=== PATIENT | female | born 1990 | race Caucasian/White ===

== ENCOUNTER 2022-08-27 06:25 | Emergency (ER) | payer BC, SELFPAY ==
[2022-08-27 06:25] VITALS: BP 118/56; PULSE 77; RESP 18; TEMP 36.8; O2SAT 97; BMI 37.0
--- NOTE | 2022-08-27 06:52 | HMH.EDBACK ---
Discharge Plan Disposition Patient Disposition: Home, Self-Care Prescriptions Prescriptions: New prednisone [prednisone] 20 mg tablet 20 mg PO BID Qty: 10 0RF No Action pantoprazole [Protonix] 40 mg Tablet,Delayed Release (Dr/Ec) 40 mg PO DAILY Referrals Follow up/Referrals: Provider,Referral, [Primary Care Provider] - See instructions Clinical Impressions Clinical Impression: Lumbar radiculopathy Instructions Patient Instructions: DI for Back Pain With Sciatica Discharge ED Provider: Shravan (ED)Geoffrey Back Pain HPI General Chief Complaint: Back Pain/Injury Stated Complaint: Back pain Time Seen by Provider: 08/27/22 06:45 Mode of Arrival: Ambulatory Source of Information: Patient, Significant Other and Medical Record Limitations: No Limitations Description of Symptoms (Recalled from ER Triage Doc. by RN): pt states that she has chronic back pain and that she can not find any reliefe the pt states that she has multiple back issues in the lumbar region, herniated discs buldging discs spinal stenosis, and degeneritive disc disease. the pt states that she used motrin last night but the pain is still 11/26 History of Present Illness HPI Narrative: acute nontraumatic lumbar pain w/o fever/rash or trauma with hx of l/s radicular pain with hx of abn mri - no cauda equina sx Complaint: back pain Onset (ago): day(s) Duration: intermittent Similar Symptoms Previously: Yes Location: lumbar spine Severity: moderate Context: turning/twisting and bending Associated symptoms: denies other symptoms Related Data Home Medications Medication Instructions Recorded Confirmed pantoprazole 40 mg tablet,delayed 40 mg PO DAILY . 08/27/22 08/27/22 release (Protonix) Previous Rx's Medication Instructions Recorded prednisone 20 mg tablet 20 mg PO BID #10 tabs 08/27/22 Allergies Allergy/AdvReac Type Severity Reaction Status Date / Time Penicillins Allergy Verified 08/27/22 06:43 propofol Allergy Verified 08/27/22 06:43 [facility] Disclaimer: The information contained in this section may have been updated after the patient was seen, as this information can be updated by other users. Social History Smoking Status: Current some day smoker alcohol intake: never current occupational status: unemployed Travel in the last 8 weeks: None ROS Obtained: Yes All systems reviewed & no additional complaints except as documented Physical Exam General General appearance: alert Head Head exam: atraumatic Eye Eye exam: Present PERRL and EOMI ENT ENT exam: Present mucous membranes moist Neck Neck exam: Present trachea midline Respiratory Respiratory exam: Absent respiratory distress Cardiovascular Cardiovascular exam: Present regular rate Abdominal Exam Abdominal exam: Present soft Extremities Exam Extremities exam: Present full ROM Back Exam Back exam: Present tenderness and paraspinal tenderness; Absent full ROM, CVA tenderness (R), CVA tenderness (L), vertebral tenderness, rashes or straight leg raise (L) Neurological Exam Neurological exam: Present alert, oriented X3 and CN II-XII intact; Absent motor sensory deficit Psychiatric Psychiatric exam: Present normal affect Skin Skin exam: Absent rash Medical Decision Making Medical Records Medical records reviewed: Yes I reviewed the patient's medical records. Javier Inquiry Pt receiving controlled substance: No Vital Signs: 08/27/22 06:25 Temperature 98.3 F Temperature Source Oral Pulse Rate [Left] 77 Respiratory Rate 18 Blood Pressure [Right Arm] 118/56 L Blood Pressure Mean [Right Arm] 76 02 Sat by Pulse Oximetry 97 Oxygen Delivery Method Room Air Lab Data Lab results reviewed: Yes I reviewed the patient's lab results. Orders (Tests/Meds): ED MEDICATIONS Generic Name Dose Route Start Last Admin Trade Name Freq PRN Reason Stop Dose Admin Acetaminophen/Codeine Phosphate 1 packet 08/27/22 06:47
[2022-08-27 06:58] VITALS: BP 121/67; PULSE 73; RESP 18; TEMP 36.8; O2SAT 99
== END 2022-08-27 07:03 | disposition home or self-care (01) ==
PROVIDERS: Emergency Provider Emergency Medicine
DX: M54.16 Radiculopathy, lumbar region (principal); F17.200 Nicotine dependence, unspecified, uncomplicated
CPT/HCPCS: 96372; 96374; 99284

== ENCOUNTER → 2022-08-29 07:20 | Outpatient (CLI) | payer BC, SELFPAY ==
--- NOTE | 2022-08-29 07:25 | XR_ITS ---
FINAL REPORT CLINICAL HISTORY: low back pain COMPARISON: None FINDINGS: 3 views of the lumbosacral spine were obtained. There is no fracture present. There is 4 mm of anterolisthesis of L5 on S1. There is mild degenerative change with osteophytes. Stent is present in the left iliac region. IMPRESSION: No acute process. Reviewed, Interpreted and Dictated by Vicente Doran III, MD Transcribed by Dasha Cm Authenticated and [facility]
== END ==
PROVIDERS: PCP Family Medicine; Visit Provider Family Medicine
DX: M54.16 Radiculopathy, lumbar region (principal)
CPT/HCPCS: 72100

== ENCOUNTER 2022-10-25 14:00 | Outpatient (RCR) | payer BC, SELFPAY ==
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
--- NOTE | 2022-10-25 17:46 | HMH.RHREAS ---
Rehab Reassessment Rehab OP Re-assessment Start: 09/27/22 13:45 Freq: Status: Active Protocol: Document 10/25/22 15:17 RENZO (Rec: 10/25/22 17:45 RENZO [id number]) E-signed By Keo Gonzalez, PT Oswestry Index Section 1 Pain Intensity The pain comes and goes and is severe Section 2 Personal Care (Washing,Dresing) increase the pain and I find it necessary to change my way of doing it Section 3 Lifting I can only lift very light weights at most Section 4 Walking I cannot walk more than 1/4 mile without increasing pain Section 5 Sitting Pain prevents me from sitting for more than 1/2 hour Section 6 Standing I cannot stand more than 1/2 hour without increasing pain Section 7 Sleeping Because of pain, my normal nights sleep is less than 2 hours sleep Section 8 Social Life Pain has restricted my social life and I do not go out often Section 9 Traveling I get extra pain while traveling which compels me to seek alternate fo Score and Risk Level Oswestry Sc 32 Oswestry Risk Level Severe Disability Rehab Re-assessment Subjective Subjective Patient reports no significant improvement since start of care. I couldn't do the exercises bacause of the position and they made me feel more sore. So I haven't been doing them. Objective Objective Notes AROM: WFL except flx 62 MMT: WFL Pain: 5/10 today; 8/10 at worst over past week Neuro: no reports of radicular symptoms. Myotomes normal. Assessment Progress Assessment No Progress Assessment Notes Patient was seen for her second treatment visit to date . Lack of progress due to extenuating circumstances and non-compliance with HEP. Patient has been vocal about wanting to have an MRI, and that a MRI will help her feel better. PT informed patient that lack of progress is due to lack of participation in PT and HEP. She would benefit from continuing with skilled PT services in order to address functional limitations with all standing, ambulatory , bending/lifting activities. Patient goals met None Goals Not Met All Revised Goals NA Plan Plan Continue with current POC. Frequency of Therapy 2x/week Duration of therapy 4 weeks Time and Billing Re-Eval Time 14 Re-Eval Billing Units 1 PHYSICIAN CERTIFICATION: I certify the specified therapy services for Sania De La Vegain are required, authorized, and reviewed every 30 days.
== END 2022-10-25 15:20 | disposition home or self-care (01) ==
LOC: PT 14:00
PROVIDERS: Visit Provider Family Medicine
DX: M54.50 Low back pain, unspecified (principal); M54.16 Radiculopathy, lumbar region
CPT/HCPCS: 97010; 97014; 97110; 97140; 97163; 97164; G0283

== ENCOUNTER → 2022-11-11 00:10 | Outpatient (CLI) | payer BC, SELFPAY ==
[2022-11-11 16:28] LABS: Basophils % 0.2 % (0.1-2.0); Eosinophils # 0.2 K/mm3 (0.0-0.4); Eosinophils % 2.7 % (0.1-12.0); Hematocrit 45.9 % (37.0-47.0); Hemoglobin 14.9 g/dL (12.2-16.2); Lymphocytes # 2.1 K/mm3 (0.7-4.5); Mean Corpuscular HGB Conc 32.5 g/dL (31.8-35.4); Mean Corpuscular Hemoglobin 26.8 pg (27.0-31.2); Mean Corpuscular Volume 82.5 fl (81-99); Monocytes # 0.3 K/mm3 (0.1-1.0); Monocytes % 3.4 % (1.7-9.3); Neutrophils # 5.1 K/mm3 (1.8-7.8); Neutrophils % 66.6 % (37.0-80.0); Platelet Count 272 K/mm3 (142-424); Red Blood Count 5.56 M/mm3 (4.20-5.40); Red Cell Distribution Width 15.4 % (11.5-17.5); White Blood Count 7.6 K/mm3 (4.8-10.8)
[2022-11-11 16:33] LABS: Alanine Aminotransferase 22 U/L (12-78); Albumin Level 4.5 g/dl (3.5-5.0); Albumin/Globulin Ratio 1.6 (1.1-1.8); Alkaline Phosphatase 78 U/L (38-126); Anion Gap 15.4 mEq/L (5-15); Aspartate Amino Transferase 30 U/L (14-36); Bilirubin,Total 0.6 mg/dl (0.2-1.3); Blood Urea Nitrogen 13 mg/dl (7-17); Calcium 9.3 mg/dl (8.4-10.2); Carbon Dioxide 25 mmol/L (22.0-30.0); Chloride 105 mmol/L (98-107); Estimated Glomerular Filt Rate 72 ml/min (>60); GFR (African American) 87 ML/MIN (>60); Globulin 2.9 g/dL (1.3-3.2); Glucose 82 mg/dl (74-100); Potassium 4.4 mmoL/L (3.5-5.1); Sodium 141 mmol/L (136-145); Total Protein,Serum 7.4 g/dl (6.3-8.2)
== END ==
PROVIDERS: PCP Family Medicine; Visit Provider Family Medicine
DX: R60.9 Edema, unspecified (principal)
CPT/HCPCS: 80053; 83036; 85025

== ENCOUNTER 2022-12-12 13:19 | Emergency (ER) | payer BC, SELFPAY ==
[2022-12-12 13:20] VITALS: BP 115/66; PULSE 68; RESP 17; TEMP 36.6; O2SAT 98; BMI 39.2
--- NOTE | 2022-12-12 13:34 | CT_ITS ---
PROCEDURE INFORMATION: Exam: CT Lumbar Spine Without Contrast Exam date and time: 12/12/2022 2:44 PM Age: 32 years old Clinical indication: Low back pain; Additional info: Midline tenderness TECHNIQUE: Imaging protocol: Computed tomography of the lumbar spine without contrast. Radiation optimization: All CT scans at this facility use at least one of these dose optimization techniques: automated exposure control; mA and/or kV adjustment per patient size (includes targeted exams where dose is matched to clinical indication); or iterative reconstruction. REPORTING DATA: Count of CT and Cardiac NM exams in prior 12 months: This patient has received 0 known CTs and 0 known cardiac nuclear medicine studies in the 12 months prior to the current study. COMPARISON: CR XR LUMBAR SPINE 2-3V 08/29/2022 7:26 AM FINDINGS: Bones/joints: Anterolisthesis of L5 over S1 attributed to a chronic bilateral pars defects. There is preservation of vertebral body heights. Facet joints are aligned. No acute fracture. L1-L2: No significant disc bulge or herniation. No severe spinal canal stenosis. No significant neural foraminal narrowing. L2-L3: No significant disc bulge or herniation. No severe spinal canal stenosis. No significant neural foraminal narrowing. L3-L4: No significant disc bulge or herniation. No severe spinal canal stenosis. No significant neural foraminal narrowing. L4-L5: No significant disc bulge or herniation. No severe spinal canal stenosis. There is mild bilateral neural foraminal narrowing. L5-S1: No significant disc bulge or herniation. No severe spinal canal stenosis. There is mild to moderate bilateral neural foraminal narrowing. Vasculature: There is a stent graft in the left common and external iliac veins Soft tissues: Unremarkable. Other findings: . IMPRESSION: 1. No acute fracture. No traumatic subluxation. 2. Anterolisthesis of L5 over S1 attributed to a chronic bilateral pars defects. There is mild to moderate bilateral neural foraminal narrowing at L5-S1 level.
--- NOTE | 2022-12-12 13:36 | HMH.EDGENADL ---
Discharge Plan Disposition Patient Disposition: Home, Self-Care Prescriptions Prescriptions: No Action pantoprazole [Protonix] 40 mg tablet,delayed release (DR/EC) 40 mg PO DAILY 30 Days Qty: 30 2RF Referrals Follow up/Referrals: Ti Lofton MD [Primary Care Provider] - See instructions Activity Restrictions/Add. Instructions Additional Instructions/Restrictions: At this time it was felt you are safe to be discharged home. If new or worsening symptoms please do not hesitate to return the emergency department. Please continue to follow-up with physical therapy as discussed. Clinical Impressions Clinical Impression: Back pain Discharge ED Provider: Ovidio Altamirano General Adult HPI <Ovidio Altamirano MD - Last Filed: 12/12/22 14:44> General Chief complaint: PAIN Stated complaint: lower back pain, no accident9 Time Seen by Provider: 12/12/22 13:26 History of Present Illness HPI narrative: Patient is a 32-year-old female with past medical history of chronic back pain who presents to the emergency department for evaluation of acute worsening of her back pain. Patient states she has had back pain for approximately 15 years and has a slipped disc in her lumbar spine for which she was conducting PT with some success however has been lost to follow-up due to transportation issues. Patient denies saddle anesthesia, urinary continence, bowel incontinence however has had an acute worsening of midline pain in her lower spine causing her to present here for continued evaluation. Related Data Previous Rx's Medication Instructions Recorded pantoprazole 40 mg tablet,delayed 40 mg PO DAILY . 30 days #30 tabs 09/19/22 release (Protonix) Allergies Allergy/AdvReac Type Severity Reaction Status Date / Time Penicillins Allergy Verified 12/12/22 13:39 propofol Allergy Verified 12/12/22 13:39 propranolol [From Inderal [place]] Allergy Verified 12/12/22 14:19 PFSH <Ovidio Altamirano MD - Last Filed: 12/12/22 14:44> [facility] Disclaimer: The information contained in this section may have been updated after the patient was seen, as this information can be updated by other users. Medical History Degenerative disc disease DVT (deep venous thrombosis) Lumbar radiculopathy Scoliosis Spinal stenosis Surgical History H/O adenoidectomy H/O eye surgery History of History of partial hysterectomy History of tonsillectomy Lipoma of left lower extremity S/P dilation and curettage Status post insertion of iliac artery stent [place] teeth extracted Family History Mother Hypertension Stroke Diabetes Father Hypertension Stroke Coronary artery disease Grandmother Cancer Social History Smoking Status: Current every day smoker alcohol intake: never substance use type: denies use current occupational status: unemployed Travel in the last 8 weeks: Inside the [place] <Ovidio Altamirano MD - Last Filed: 12/12/22 14:44> ROS Obtained: Yes Systems reviewed as appropriate & no additional complaints except as documented Physical Exam <Ovidio Altamirano MD - Last Filed: 12/12/22 14:44> General General appearance: alert and in no apparent distress Head Head exam: atraumatic and normocephalic Eye Eye exam: Present PERRL and EOMI ENT ENT exam: Present mucous membranes moist Neck Neck exam: Present normal inspection Chest Chest inspection: Present normal inspection and symmetric chest wall rise Respiratory Respiratory exam: Present normal lung sounds bilaterally; Absent respiratory distress Cardiovascular Cardiovascular exam: Present regular rate and normal rhythm Abdominal Exam Abdominal exam: Present soft; Absent tenderness Extremities Exam Extremities exam: Present stephanie
[2022-12-12 13:39] LABS: Microscopic, Urine URINE MICROSCOPIC (MICROSCOPIC)
[2022-12-12 13:42] LABS: Appearance,Urine CLEAR (Clear); Bilirubin,Urine Negative (Negative); Blood, Urine Negative (Negative); Color,Urine YELLOW (Yellow); Glucose,Urine (UA) Negative (Negative); Ketones,Urine Negative (Negative); Leukocyte Esterase,Urine Negative (Negative); Nitrate,Urine Negative (Negative); Protein,Urine Negative (Negative); Urobilinogen,Urine 0.2 EU/dl (0.2)
[2022-12-12 13:47] LABS: Urine Pregnancy, HCG Qual. Negative (Negative)
[2022-12-12 13:55] LABS: Bacteria,Urine Trace /lpf
[2022-12-12 15:10] VITALS: BP 112/60; PULSE 59; O2SAT 99
--- NOTE | 2022-12-12 15:49 | PC.NURSE ---
Addendum entered by Adelfo Tomlinson RN 12/12/22 15:51: call light in reach. pt provided with bottle of water. Original Note: rounded on pt at this time, updated pt on POC, no complaints at this time.
[2022-12-12 16:03] VITALS: BP 110/67; PULSE 60; RESP 17; TEMP 36.7; O2SAT 98
== END 2022-12-12 16:04 | disposition home or self-care (01) ==
PROVIDERS: Emergency Provider Emergency Medicine; PCP Family Medicine
DX: M43.16 Spondylolisthesis, lumbar region; M54.50 Low back pain, unspecified; F17.210 Nicotine dependence, cigarettes, uncomplicated
CPT/HCPCS: 72131; 81001; 81025; 99284

== ENCOUNTER 2023-01-05 15:19 | Emergency (ER) | payer BC, SELFPAY ==
[2023-01-05 15:23] VITALS: BP 118/59; PULSE 87; RESP 18; TEMP 36.4; O2SAT 99; BMI 39.5
--- NOTE | 2023-01-05 15:55 | XR_ITS ---
PROCEDURE INFORMATION: Exam: XR Left Knee Exam date and time: 01/05/2023 4:05 PM Age: 32 years old Clinical indication: Pain; Knee; Right; Additional info: Pain no injury TECHNIQUE: Imaging protocol: Radiologic exam of the left knee. Views: 3 views. COMPARISON: No relevant prior studies available. FINDINGS: Bones/joints: Normal. Soft tissues: Normal. IMPRESSION: No acute findings.
--- NOTE | 2023-01-05 15:58 | HMH.EDGENADL ---
Discharge Plan Disposition Patient Disposition: Home, Self-Care Chief Complaint: Extremity Injury, Lower Prescriptions Prescriptions: No Action pantoprazole [Protonix] 40 mg tablet,delayed release (DR/EC) 40 mg PO DAILY 30 Days Qty: 30 2RF Referrals Follow up/Referrals: Dav Norris DO [Staff Physician] - See instructions Ti Lofton MD [Primary Care Provider] - See instructions Activity Restrictions/Add. Instructions Additional Instructions/Restrictions: At this time it was felt you are safe to be discharged home. If new or worsening symptoms please do not hesitate to return the emergency department. If symptoms persist please call Dr. Norris for follow-up. Clinical Impressions Clinical Impression: Popping of left knee joint Discharge ED Provider: Ovidio Altamirano General Adult HPI General Chief complaint: Extremity Injury, Lower Stated complaint: LT knee pain Time Seen by Provider: 01/05/23 15:29 Mode of Arrival: Ambulatory Source of Information: Patient Limitations: No Limitations Description of Symptoms (Recalled from ER Triage Doc. by RN): left knee popped in bed. no pain History of Present Illness HPI narrative: Patient is a 32-year-old female who presents emergency department for evaluation of left knee popping. Patient states that her left knee popped a couple days ago while stretching in bed, no significant pain, no difficulty bearing weight however she does feel grinding on her leg. She does have a history of juvenile idiopathic arthritis. Denies current pain. No other acute complaints at this time. Related Data Previous Rx's Medication Instructions Recorded pantoprazole 40 mg tablet,delayed 40 mg PO DAILY . 30 days #30 tabs 12/16/22 release (Protonix) Allergies Allergy/AdvReac Type Severity Reaction Status Date / Time Penicillins Allergy Verified 12/12/22 13:39 propofol Allergy Verified 12/12/22 13:39 propranolol [From Inderal [place]] Allergy Verified 12/12/22 14:19 [facility] Disclaimer: The information contained in this section may have been updated after the patient was seen, as this information can be updated by other users. Medical History Degenerative disc disease DVT (deep venous thrombosis) Lumbar radiculopathy Scoliosis Spinal stenosis Surgical History H/O adenoidectomy H/O eye surgery History of History of partial hysterectomy History of tonsillectomy Lipoma of left lower extremity S/P dilation and curettage Status post insertion of iliac artery stent [place] teeth extracted Family History Mother Hypertension Stroke Diabetes Father Hypertension Stroke Coronary artery disease Grandmother Cancer Social History Smoking Status: Never smoker alcohol intake: never substance use type: denies use current occupational status: unemployed Travel in the last 8 weeks: Inside the [place] [facility] ROS Obtained: Yes Systems reviewed as appropriate & no additional complaints except as documented Physical Exam General General appearance: alert and in no apparent distress Head Head exam: atraumatic and normocephalic Eye Eye exam: Present PERRL and EOMI ENT ENT exam: Present mucous membranes moist Neck Neck exam: Present normal inspection Chest Chest inspection: Present normal inspection and symmetric chest wall rise Respiratory Respiratory exam: Absent respiratory distress Cardiovascular Cardiovascular exam: Present regular rate and normal rhythm Extremities Exam Extremities exam: Present normal inspection and other (No significant tenderness over the knee, extensor mechanism intact, 5 out of 5 strength of the left lower extremity.) Neurological Exam Neurological exam: Present alert Psychiatric Psychiatric ex
[2023-01-05 16:58] VITALS: BP 108/58; PULSE 77; RESP 18; TEMP 36.6
--- NOTE | 2023-02-07 23:21 | PC.NURSE ---
notified patient of + covid result.
== END 2023-01-05 17:03 | disposition home or self-care (01) ==
PROVIDERS: Emergency Provider Emergency Medicine; PCP Family Medicine
DX: M25.562 Pain in left knee (principal); R29.898 Other symptoms and signs involving the musculoskeletal system; Z87.39 Personal history of other diseases of the musculoskeletal system and connective tissue
CPT/HCPCS: 73562; 99283

== ENCOUNTER 2023-01-16 14:10 | Outpatient (RCR) | payer BC, SELFPAY | END 2023-01-16 15:30 | disposition home or self-care (01) | LOC: PT 14:10 | PROVIDERS: Visit Provider Orthopaedic Surgery | DX: M25.562 Pain in left knee (principal) | CPT/HCPCS: 97760 ==

== ENCOUNTER 2023-02-07 21:31 | Emergency (ER) | payer BC, SELFPAY ==
[2023-02-07 21:32] VITALS: BP 106/45; PULSE 113; RESP 15; TEMP 37.2; O2SAT 100; BMI 39.2
[2023-02-07 22:16] LABS: Strep Scrn Group A (Rapid) Negative (Negative)
--- NOTE | 2023-02-07 22:29 | HMH.EDGENADL ---
Discharge Plan Disposition Patient Disposition: Home, Self-Care Prescriptions Prescriptions: New ezdpxcmoymjclcm-mpfpqdfit-BG [Bromfed DM] 2-30-10 mg/5 mL syrup 5 ml PO Q6H PRN (Reason: cold symptoms) Qty: 118 0RF No Action sulfamethoxazole-trimethoprim 800-160 mg tablet 1 tab PO BID Qty: 20 0RF cephalexin 500 mg capsule 500 mg PO QID Qty: 40 0RF cetirizine [Zyrtec] 10 mg tablet 10 mg PO DAILY Qty: 30 0RF pseudoephedrine HCl 120 mg tablet extended release 120 mg PO Q12H Qty: 20 1RF pantoprazole [Protonix] 40 mg tablet,delayed release (DR/EC) 40 mg PO DAILY 30 Days Qty: 30 2RF Referrals Follow up/Referrals: Ti Lofton MD [Primary Care Provider] - See instructions Activity Restrictions/Add. Instructions Additional Instructions/Restrictions: At this time it was felt you are safe to be discharged home. If new or worsening symptoms please do not hesitate to return the emergency department. If symptoms persist please follow-up with your family doctor as you are able. Please take your medication as prescribed. Clinical Impressions Clinical Impression: Viral respiratory infection Discharge ED Provider: Ovidio Altamirano General Adult HPI General Chief complaint: Upper Respiratory Infection Stated complaint: sore throat, raspy voice Time Seen by Provider: 02/07/23 22:01 Mode of Arrival: Family Vehicle Source of Information: Patient Limitations: No Limitations Description of Symptoms (Recalled from ER Triage Doc. by RN): 32 yo female with sore throat and raspy voice x 2 days. Patient states i have been trying to get over the sinus infection History of Present Illness HPI narrative: PastPatient is a 32-year-old female with history presents emergency department for evaluation of sore throat and raspy voice for 2 days. Patient originally had sinus drainage for the last week or so which has progressed into sore throat and cough. No other acute complaints at this time. Related Data Previous Rx's Medication Instructions Recorded pantoprazole 40 mg tablet,delayed 40 mg PO DAILY . 30 days #30 tabs 12/16/22 release (Protonix) sulfamethoxazole 800 1 tab PO BID #20 tabs 01/20/23 mg-trimethoprim 160 mg tablet cephalexin 500 mg capsule 500 mg PO QID #40 caps 01/29/23 cetirizine 10 mg tablet (Zyrtec) 10 mg PO DAILY allergy symptoms 01/29/23 #30 tabs pseudoephedrine HCl 120 mg 120 mg PO Q12H #20 tabs 01/29/23 tablet,extended release puumdbyuyfhqegc-taoativiqqoimca-CS 5 ml PO Q6H PRN cold symptoms #118 02/07/23 2 mg-30 mg-10 mg/5 mL oral syrup mL (Bromfed DM) Allergies Allergy/AdvReac Type Severity Reaction Status Date / Time Penicillins Allergy Verified 01/29/23 14:42 propranolol [From Inderal LA] Allergy Verified 01/29/23 14:42 PFSH PFSH Disclaimer: The information contained in this section may have been updated after the patient was seen, as this information can be updated by other users. Medical History Degenerative disc disease DVT (deep venous thrombosis) Lumbar radiculopathy Scoliosis Spinal stenosis Surgical History H/O adenoidectomy H/O eye surgery History of History of partial hysterectomy History of tonsillectomy Lipoma of left lower extremity S/P dilation and curettage Status post insertion of iliac artery stent [place] teeth extracted Family History Mother Hypertension Stroke Diabetes Father Hypertension Stroke Coronary artery disease Grandmother Cancer Social History Smoking Status: Unknown if ever smoked alcohol intake: never substance use type: denies use current occupational status: unemployed Travel in the last 8 weeks: Inside the [place] ROS Obtained: Yes Systems reviewed as approp
[2023-02-07 22:31] LABS: Influenza A, PCR Not Detected (NotDetected); Influenza B, PCR Not Detected (NotDetected)
[2023-02-07 22:47] VITALS: BP 109/57; PULSE 100; RESP 16; TEMP 37.2; O2SAT 100
[2023-02-07 23:02] LABS: Coronavirus 19, PCR Detected (NotDetected)
== END 2023-02-07 22:47 | disposition home or self-care (01) ==
PROVIDERS: Emergency Provider Emergency Medicine; PCP Family Medicine
DX: U07.1 COVID-19 (principal); R07.0 Pain in throat; R05.9 Cough, unspecified; R09.82 Postnasal drip; R00.0 Tachycardia, unspecified
CPT/HCPCS: 87430; 87636; 99283

== ENCOUNTER 2023-03-03 16:47 | Outpatient (CLI) | payer BC, SELFPAY ==
[2023-03-03 16:31] LABS: Basophils % 0.5 % (0.1-2.0); Eosinophils # 0.1 K/mm3 (0.0-0.4); Eosinophils % 1.3 % (0.1-12.0); Hematocrit 42.8 % (37.0-47.0); Hemoglobin 14.7 g/dL (12.2-16.2); Lymphocytes # 1.9 K/mm3 (0.7-4.5); Lymphocytes % 30.1 % (10-50); Mean Corpuscular HGB Conc 34.3 g/dL (31.8-35.4); Mean Corpuscular Hemoglobin 27.9 pg (27.0-31.2); Mean Corpuscular Volume 81.2 fl (81-99); Mean Platelet Volume 8.9 fl (7.4-10.4); Monocytes # 0.3 K/mm3 (0.1-1.0); Neutrophils # 4.1 K/mm3 (1.8-7.8); Neutrophils % 64.1 % (37.0-80.0); Platelet Count 233 K/mm3 (142-424); Red Blood Count 5.27 M/mm3 (4.20-5.40); Red Cell Distribution Width 14.5 % (11.5-17.5); White Blood Count 6.4 K/mm3 (4.8-10.8)
[2023-03-03 17:00] LABS: Iron 56 ug/dL (37-170)
[2023-03-03 17:13] LABS: Total Iron Binding Capacity 298 ug/dL (265-497)
[2023-03-03 18:59] LABS: 25-OH Vitamin D, Total 27.4 ng/mL (30-100)
[2023-03-05 08:15] LABS: FSH 4.5 mIU/mL (.)
== END 2023-03-03 23:59 ==
LOC: LAB.DROPOF 16:48
PROVIDERS: PCP Family Medicine; Visit Provider Family Medicine
DX: G47.00 Insomnia, unspecified (principal); E55.9 Vitamin D deficiency, unspecified; Z68.38 Body mass index [BMI] 38.0-38.9, adult
CPT/HCPCS: 82306; 83001; 83540; 83550; 85025

== ENCOUNTER 2023-04-24 08:37 | Emergency (ER) | payer BC, SELFPAY ==
[2023-04-24 08:38] VITALS: BP 126/75; PULSE 67; RESP 16; TEMP 36.9; O2SAT 99; BMI 37.8
[2023-04-24 08:59] VITALS: BP 131/75; PULSE 75; O2SAT 99
[2023-04-24 09:00] VITALS: BP 126/75; PULSE 74; O2SAT 99
--- NOTE | 2023-04-24 09:17 | XR_ITS ---
FINAL REPORT CLINICAL HISTORY: left flank pain COMPARISON: None FINDINGS: Two views of the chest were obtained. The heart size and pulmonary vascularity are within normal limits. The mediastinum is normal. No acute pulmonary abnormality is identified. There is no pneumothorax. The bony thorax is intact. IMPRESSION: No active cardiopulmonary disease. Reviewed, Interpreted and Dictated by Vicente Doran III, MD Transcribed by Dasha Cm Authenticated and [facility]
--- NOTE | 2023-04-24 09:24 | ED_ITS ---
Discharge Plan Disposition Patient Disposition: Home, Self-Care Prescriptions Prescriptions: New cyclobenzaprine 10 mg tablet 10 mg PO TID PRN (Reason: muscle spasm) 5 Days Qty: 15 0RF ibuprofen 800 mg tablet 800 mg PO TID PRN (Reason: pain) 7 Days Qty: 20 0RF No Action escitalopram oxalate [Lexapro] 10 mg tablet 10 mg PO DAILY Qty: 30 1RF cyclobenzaprine 10 mg tablet 10 mg PO Patient Comments: TAKE 1 TABLET EVERY 8 HOURS diclofenac sodium 75 mg tablet,delayed release (DR/EC) 75 mg PO BID Patient Comments: TAKE 1 TABLET EVERY 12 HOURS NEEDED FOR PAIN cetirizine [Zyrtec] 10 mg tablet 10 mg PO DAILY Qty: 30 0RF pantoprazole [Protonix] 40 mg tablet,delayed release (DR/EC) 40 mg PO DAILY 30 Days Qty: 30 2RF Referrals Follow up/Referrals: Ti Lofton MD [Primary Care Provider] - See instructions Activity Restrictions/Add. Instructions Additional Instructions/Restrictions: No evidence of any rib fractures or underlying lung injury. Please take your anti-inflammatory medication and muscle laxer make sure he can take deep breaths return with any signs or symptoms of pneumonia to include fevers chills cough etc. Clinical Impressions Clinical Impression: Chest wall contusion Discharge ED Provider: Jalen San General Adult HPI General Chief complaint: PAIN Stated complaint: [id number], pain in Lt side Time Seen by Provider: 04/24/23 09:13 Mode of Arrival: Ambulatory Source of Information: Patient Limitations: No Limitations Description of Symptoms (Recalled from ER Triage Doc. by RN): pt stated she was wrestling with boyfriend and now has pain to left side of back in the middle, close to ribs; this was on Friday and just started hurting today; pain is only when taking a deep breath or with movement History of Present Illness HPI narrative: Patient is a 33-year-old female here with left lateral thoracic wall pain after wrestling with her boyfriend falling onto his foot and sustained an injury 2 days ago. She states she has had difficulty breathing since that time and pain with inspiration. No fevers chills or cough. No injuries elsewhere. Related Data Home Medications Medication Instructions Recorded Confirmed cyclobenzaprine 10 mg tablet 10 mg PO 04/11/23 04/11/23 diclofenac sodium 75 mg 75 mg PO BID 04/11/23 04/11/23 tablet,delayed release Previous Rx's Medication Instructions Recorded escitalopram oxalate 10 mg tablet 10 mg PO DAILY #30 tabs 03/03/23 (Lexapro) pantoprazole 40 mg tablet,delayed 40 mg PO DAILY . 30 days #30 tabs 03/21/23 release (Protonix) cetirizine 10 mg tablet (Zyrtec) 10 mg PO DAILY allergy symptoms 04/11/23 #30 tabs cyclobenzaprine 10 mg tablet 10 mg PO TID PRN muscle spasm 5 04/24/23 days #15 tabs ibuprofen 800 mg tablet 800 mg PO TID PRN pain 7 days #20 04/24/23 tabs Allergies Allergy/AdvReac Type Severity Reaction Status Date / Time Penicillins Allergy Verified 04/11/23 10:33 propranolol [From Inderal [place]] Allergy Verified 04/11/23 10:33 [facility] Disclaimer: The information contained in this section may have been updated after the patient was seen, as this information can be updated by other users. Medical History Degenerative disc disease DVT (deep venous thrombosis) Lumbar radiculopathy Scoliosis Spinal stenosis Surgical History H/O adenoidectomy H/O eye surgery History of History of partial hysterectomy History of tonsillectomy Lipoma of left lower extremity S/P dilation and curettage Status post insertion of iliac artery stent [place] teeth extracted Family History Mother Hypertension Stroke Diabetes Father Hypertension Stroke Coronary artery disease Grandmother Cancer Social History Smoking Status: Current every day smoker alcohol intake: never substance use type: denies use current occupational status: unemployed Travel in the last 8 weeks: Inside the [place] ROS Obtained: Yes All systems reviewed & no additional complaints except as documented Physical Exam General General appearance: alert Chest Chest inspection: Present tenderness (Lateral mid thoracic tenderness to palpation no soft tissue swelling ecchymosis etc.) Respiratory Respiratory exam: Present normal lung sounds bilaterally; Absent respiratory distress Cardiovascular Cardiovascular exam: Present regular rate and normal rhythm Neurological Exam Neurological exam: Present alert and oriented X3 Medical Decision Making Javier Inquiry Pt receiving controlled substance: No Vital Signs: 04/24/23 08:38 04/24/23 08:59 04/24/23 09:00 Temperature 98.4 F Temperature Source Oral Pulse Rate 75 74 Pulse Rate [Right Brachial] 67 Respiratory Rate 16 Blood Pressure 131/75 126/75 Blood Pressure [Right Arm] 126/75 Blood Pressure Mean [Right Arm] 92 Blood Pressure Source [Right Arm] Automatic Cuff Blood Pressure Position [Right Arm] Sitting 02 Sat by Pulse Oximetry 99 99 99 Oxygen Delivery Method Room Air Room Air Room Air Orders (Tests/Meds): ED MEDICATIONS Discontinued Medications Generic Name Dose Route Start Last Admin Trade Name Darrenq PRN Reason Stop Dose Admin Ketorolac Tromethamine 60 mg 04/24/23 09:17 04/24/23 09:46 Ketorolac 60mg/2ml Vial IM 04/24/23 09:18 60 mg ONCE ONE Administration ORDERS Category Date Time Status XR chest 2V Stat Exams 04/24/23 09:17 Completed Medical Decision Narrative: Patient is a well-appearing obese 33-year-old female who presents today with blunt trauma to the left lateral aspect of her mid thoracic chest wall. She has no objective abnormality on her exam other than tenderness in the left lateral chest wall. Will get a two-view chest x-ray to rule out any type of pneumothorax hemothorax or displaced rib fractures etc. Toradol has been given will reassess. Chest x-ray performed which I first interpreted shows no acute cardiopulmonary emergency patient will be treated supportively with return precautions emphasized she was discharged in a stable and improved condition. Critical Care Critical Care Time Critical Care Time: No
--- NOTE | 2023-04-24 09:24 | PC.NURSE ---
ROUNDED ON PT STATES NO NEEDS AT THIS TIME, VISITOR AT BS AND CALL LIGHT IN REACH
[2023-04-24] MEDS: KETOROLAC 60MG/2ML VIAL 60 MG IM (09:46)
[2023-04-24 10:06] VITALS: BP 120/75; PULSE 76; RESP 16; TEMP 36.9; O2SAT 98
== END 2023-04-24 10:08 | disposition home or self-care (01) ==
PROVIDERS: Emergency Provider Student in an Organized Health Care Education/Training Program; PCP Family Medicine
DX: S20.212A Contusion of left front wall of thorax, initial encounter (principal); F17.210 Nicotine dependence, cigarettes, uncomplicated; W50.0XXA Accidental hit or strike by another person, initial encounter
CPT/HCPCS: 71046; 96372; 99284

== ENCOUNTER 2023-06-05 06:19 | Emergency (ER) | payer BC, SELFPAY ==
[2023-06-05 06:21] VITALS: BP 104/61; PULSE 78; RESP 18; TEMP 37; O2SAT 100; BMI 36.8
--- NOTE | 2023-06-05 06:44 | HMH.EDGENADL ---
Discharge Plan Disposition Patient Disposition: Home, Self-Care Condition: Good Prescriptions Prescriptions: No Action cetirizine 10 mg tablet 10 mg PO DAILY Patient Comments: TAKE 1 TABLET 1 TIME EACH DAY FOR ALLERGY SYMPTOMS pantoprazole 40 mg tablet,delayed release (DR/EC) 40 mg PO DAILY Patient Comments: TAKE 1 TABLET 1 TIME EACH DAY diclofenac sodium 75 mg tablet,delayed release (DR/EC) 75 mg PO BID Patient Comments: TAKE 1 TABLET 2 TIMES EACH DAY escitalopram oxalate 10 mg tablet 10 mg PO DAILY Patient Comments: TAKE 1 TABLET 1 TIME EACH DAY Referrals Follow up/Referrals: Ti Lofton MD [Primary Care Provider] - See instructions Activity Restrictions/Add. Instructions Additional Instructions/Restrictions: You were evaluated in the emergency department today. Please take Tylenol and ibuprofen at home as needed for pain. Follow-up with your primary care provider over the next 3 days for reassessment. Return to the emergency department for new or worsening symptoms. Clinical Impressions Clinical Impression: Leg pain, left Stand Alone Forms Stand Alone Forms: Work/School Release Instructions Patient Instructions: DI for Sciatica, DI for Hip Pain Discharge ED Provider: Mallory Chilel General Adult HPI <Ollie Rees MD - Last Filed: 06/05/23 06:50> General Chief complaint: Extremity Problem,Nontraumatic Stated complaint: left leg pain, history of blood clots,2 stints leg Time Seen by Provider: 06/05/23 06:24 Mode of Arrival: Ambulatory Source of Information: Patient Limitations: No Limitations Description of Symptoms (Recalled from ER Triage Doc. by RN): 33 female presents from home with c/o left posterior hip pain that radiates down her leg. Patient reports blood clots to her left leg with 2 stents placed to her femoral artery. Patient reports this pain to be sharp-shooting and dull-aching at times. She states this pain is similar to when she had her blood clots. Patient is not on anticoagulants of any type. No chest pain, shortness of air, fever, or chills. She is not a smoker and does not take oral birthcontrol. 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 Is been going on about 2 days. Radiates down left leg. 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 Not currently on anticoagulation. Has not had blood clots since. Has tried taking Tylenol for this pain, that has not helped. She is also on diclofenac twice daily. No right lower extremity symptoms, bowel or bladder dysfunction, back injury, history of sciatica, chest pain, shortness of breath, fever, or any other concerns. Please note that above description of symptoms, in this electronic medical record under categorization of recalled from ER triage doctor by RN are reflective of an initial nursing assessment, however, is not reflective of my full history and physical exam that was personally taken and clarified. Consequentially, this preceding description of symptoms, which may include the patient's categorized chief complaint in the EMR, do not reflect my personal clinical impression, and the ultimate description of history of present illness and patient stated complaints should be deferred to this section of the note. Unless stated otherwise or congruent with this section of the note, additional signs, symptoms, or incongruence should be interpreted as inaccurate with my clinical impression. Related Data Home Medications Medication Instructions Recorded Confirmed cetirizine 10 mg tablet 10 mg PO DAILY 06/05/23 06/05/23 diclofenac sodium 75 mg 75 mg PO BID 06/05/23 06/05/23 tablet,delayed release escitalopram oxalate 10 mg tablet 10 mg PO DAILY 06/05/23 06/05/23 pantoprazole 40 mg tablet,delayed 40 mg PO DAILY 06/05/23 06/05/23 release Allergies Allergy/AdvReac Type Severity Reaction Status Date / Time Penicillins Allergy Verified 05/02/23 09:28 propranolol [From Inderal [place]] Allergy Verified 05/02/23 09:28 [facility] <Ollie Rees MD - Last Filed: 06/05/23 06:50> [facility] Disclaimer: The information contained in this section may have been updated after the patient was seen, as this information can be updated by other users. Medical History Scoliosis Spinal stenosis Degenerative disc disease DVT (deep venous thrombosis) Lumbar radiculopathy Surgical History Lipoma of left lower extremity [place] teeth extracted H/O eye surgery H/O adenoidectomy History of tonsillectomy History of S/P dilation and curettage History of partial hysterectomy Status post insertion of iliac artery stent Family History Mother Hypertension Stroke Diabetes Father Hypertension Stroke Coronary artery disease Grandmother Cancer Social History Smoking Status: Never smoker alcohol intake: never substance use type: denies use current occupational status: unemployed Travel in the last 8 weeks: Inside the [place] <Ollie Rees MD - Last Filed: 06/05/23 06:50> ROS Obtained: Yes All systems reviewed & no additional complaints except as documented Physical Exam <Ollie Rees MD - Last Filed: 06/05/23 06:50> General General appearance: alert and in no apparent distress Head Head exam: atraumatic and normocephalic Eye Eye exam: Present normal appearance, PERRL and EOMI ENT ENT exam: Present mucous membranes moist Neck Neck exam: Present normal inspection, full ROM and trachea midline Respiratory Respiratory exam: Absent respiratory distress, wheezes, stridor, accessory muscle use or prolonged expiratory phase Cardiovascular Cardiovascular exam: Present normal rhythm Abdominal Exam Abdominal exam: Present soft; Absent distention, tenderness, guarding, rebound or rigidity Extremities Exam Extremities exam: Present other (Left leg mildly larger than right. Patient states this is chronic for her, especially since stenting surgery and was told by vascular surgery this would always be the case.); Absent edema Neurological Exam Neurological exam: Present alert, oriented X3, CN II-XII intact and normal gait; Absent motor sensory deficit Skin Skin exam: Present warm and dry; Absent diaphoresis or erythema Medical Decision Making <Ollie Rees MD - Last Filed: 06/05/23 06:50> Medical Records Medical records reviewed: Yes I reviewed the patient's medical records. Javier Inquiry Pt receiving controlled substance: No Javier was queried for this patient: No Vital Signs: 06/05/23 06:21 06/05/23 07:01 Temperature 98.6 F Temperature Source Oral Pulse Rate 63 Pulse Rate [Left] 78 Respiratory Rate 18 Blood Pressure 100/55 L Blood Pressure [Right Arm] 104/61 L Blood Pressure Mean [Right Arm] 75 Blood Pressure Source [Right Arm] Automatic Cuff Blood Pressure Position [Right Arm] Sitting 02 Sat by Pulse Oximetry 100 99 Oxygen Delivery Method Room Air Room Air Lab Data Lab Results 06/05/23 06:40: WBC 5.4, RBC 5.04, Hgb 13.9, Hct 42.8, MCV 84.8, MCH 27.6, MCHC 32.6, RDW 15.2, Plt Count 201, MPV 7.9, Neut % (Auto) 57.1, Lymph % (Auto) 36.0, Treasure % (Auto) 3.3, Eos % (Auto) 2.7, Baso % (Auto) 0.9, Neut # (Auto) 3.1, Lymph # (Auto) 1.9, Treasure # (Auto) 0.2, Eos # (Auto) 0.1, Baso # (Auto) 0.1, PT 10.4, INR 0.96, APTT 30.5, Sodium 140, Potassium 4.1, Carbon Dioxide 24, BUN 15, Creatinine 0.80, Estimated Creat Clear 172, Estimated GFR 82, Est GFR ( Amer) 99, Glucose 101 H, Calcium 8.9, Total Bilirubin 0.8, AST 38 H, ALT 42, Alkaline Phosphatase 76, Total Protein 6.5, Albumin 3.8, Globulin 2.7, Albumin/Globulin Ratio 1.4 06/05/23 06:40 06/05/23 06:40 Orders (Tests/Meds): ED MEDICATIONS Discontinued Medications Generic Name Dose Route Start Last Admin Trade Name Freq PRN Reason Stop Dose Admin Acetaminophen 1,000 mg 06/05/23 06:41 06/05/23 06:46 Acetaminophen 500mg Tab PO 06/05/23 06:42 1,000 mg ONCE ONE Administration Ketorolac Tromethamine 15 mg 06/05/23 06:41 06/05/23 06:46 Ketorolac 30mg/Ml Vial IV 06/05/23 06:42 Not Given ONCE ONE Methocarbamol 1,500 mg 06/05/23 06:41 06/05/23 06:46 Methocarbamol 500mg Tablet PO 06/05/23 06:42 1,500 mg ONCE ONE Administration ORDERS Category Date Time Status POCUS Point of Care (ER Only) Stat Exams 06/05/23 06:28 Ordered CBC w/Auto Diff [Complete Blood Count Auto Diff] Stat Lab 06/05/23 06:40 Completed CMP [Comprehensive Metabolic Panel] Stat Lab 06/05/23 06:40 Results PT INR [Prothrombin Time INR] Stat Lab 06/05/23 06:40 Completed PTT [Activated Partial Thrombo Time] Stat Lab 06/05/23 06:40 Completed Medical Decision Narrative: 29-year-old for 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 Is been going on about 2 days. Radiates down left leg. 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 Not currently on anticoagulation. Has not had blood clots since. Has tried taking Tylenol for this pain, that has not helped. She is also on diclofenac twice daily. No right lower extremity symptoms, bowel or bladder dysfunction, back injury, history of sciatica, chest pain, shortness of breath, fever, or any other concerns. History was obtained via conversation with patient. On arrival, patient hemodynamically stable, alert, oriented x4, appropriate, GCS 15, moving all extremities spontaneously, pupils equal and reactive to light. Full physical exam performed and significant for mildly enlarged left lower extremities compared to right. Patient however states that this is normal for her. Nonpitting edema. No discoloration. Pulses are equal and symmetric. Neurologically intact, range of motion intact. Differential includes sciatica, DVT, other radiculopathy, muscle cramping, among others. Patient was given Tylenol and Robaxin p.o. for symptomatic management and correction of underlying abnormalities. Prior to workup, care was handed off to oncoming physician. Bedside [id number] ultrasound was performed, no evidence of lower extremity DVT. <Mallory Chilel, DO - Last Filed: 06/05/23 07:24> Vital Signs: 06/05/23 06:21 06/05/23 07:01 Temperature 98.6 F Temperature Source Oral Pulse Rate 63 Pulse Rate [Left] 78 Respiratory Rate 18 Blood Pressure 100/55 L Blood Pressure [Right Arm] 104/61 L Blood Pressure Mean [Right Arm] 75 Blood Pressure Source [Right Arm] Automatic Cuff Blood Pressure Position [Right Arm] Sitting 02 Sat by Pulse Oximetry 100 99 Oxygen Delivery Method Room Air Room Air Lab Data Lab Results 06/05/23 06:40: WBC 5.4, RBC 5.04, Hgb 13.9, Hct 42.8, MCV 84.8, MCH 27.6, MCHC 32.6, RDW 15.2, Plt Count 201, MPV 7.9, Neut % (Auto) 57.1, Lymph % (Auto) 36.0, Treasure % (Auto) 3.3, Eos % (Auto) 2.7, Baso % (Auto) 0.9, Neut # (Auto) 3.1, Lymph # (Auto) 1.9, Treasure # (Auto) 0.2, Eos # (Auto) 0.1, Baso # (Auto) 0.1, PT 10.4, INR 0.96, APTT 30.5, Sodium 140, Potassium 4.1, Carbon Dioxide 24, BUN 15, Creatinine 0.80, Estimated Creat Clear 172, Estimated GFR 82, Est GFR ( Amer) 99, Glucose 101 H, Calcium 8.9, Total Bilirubin 0.8, AST 38 H, ALT 42, Alkaline Phosphatase 76, Total Protein 6.5, Albumin 3.8, Globulin 2.7, Albumin/Globulin Ratio 1.4 Orders (Tests/Meds): ED MEDICATIONS Discontinued Medications Generic Name Dose Route Start Last Admin Trade Name Freq PRN Reason Stop Dose Admin Acetaminophen 1,000 mg 06/05/23 06:41 06/05/23 06:46 Acetaminophen 500mg Tab PO 06/05/23 06:42 1,000 mg ONCE ONE Administration Ketorolac Tromethamine 15 mg 06/05/23 06:41 06/05/23 06:46 Ketorolac 30mg/Ml Vial IV 06/05/23 06:42 Not Given ONCE ONE Methocarbamol 1,500 mg 06/05/23 06:41 06/05/23 06:46 Methocarbamol 500mg Tablet PO 06/05/23 06:42 1,500 mg ONCE ONE Administration ORDERS Category Date Time Status POCUS Point of Care (ER Only) Stat Exams 06/05/23 06:28 Ordered CBC w/Auto Diff [Complete Blood Count Auto Diff] Stat Lab 06/05/23 06:40 Completed CMP [Comprehensive Metabolic Panel] Stat Lab 06/05/23 06:40 Results PT INR [Prothrombin Time INR] Stat Lab 06/05/23 06:40 Completed PTT [Activated Partial Thrombo Time] Stat Lab 06/05/23 06:40 Completed Medical Decision Narrative: 29-year-old for 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 Is been going on about 2 days. Radiates down left leg. 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 Not currently on anticoagulation. Has not had blood clots since. Has tried taking Tylenol for this pain, that has not helped. She is also on diclofenac twice daily. No right lower extremity symptoms, bowel or bladder dysfunction, back injury, history of sciatica, chest pain, shortness of breath, fever, or any other concerns. History was obtained via conversation with patient. On arrival, patient hemodynamically stable, alert, oriented x4, appropriate, GCS 15, moving all extremities spontaneously, pupils equal and reactive to light. Full physical exam performed and significant for mildly enlarged left lower extremities compared to right. Patient however states that this is normal for her. Nonpitting edema. No discoloration. Pulses are equal and symmetric. Neurologically intact, range of motion intact. Differential includes sciatica, DVT, other radiculopathy, muscle cramping, among others. Patient was given Tylenol and Robaxin p.o. for symptomatic management and correction of underlying abnormalities. Prior to workup, care was handed off to oncoming physician. Bedside [id number] ultrasound was performed, no evidence of lower extremity DVT. DO Getachew: I assumed care of patient pending lab evaluation. Labs are reassuring with no acutely concerning abnormalities. At this time, feel patient likely has sciatica as cause of pain. I gave her very strict return precautions, instructions for close patient follow-up, and if she was discharged with instructions for supportive management. Procedures <Ollie Rees MD - Last Filed: 06/05/23 06:50> Limited Ultrasound Indication:: Limited DVT ultrasound Indication: Limited compression ultrasonography of the left lower extremity was performed to evaluate for non-compressibility of the deep veins in the patient. The ultrasound was performed with the following indications, as noted in the H&P: Left leg pain Identified structures: Left common femoral vein, femoral vein, popliteal vein were examined. Findings: Lower Extremity: Left CFV: Good compressibility Left FV good compressibility Left Popliteal vein: Good compressibility Impression: Normal or Right DVT or Left DVT or Bilateral DVT or Inconclusive Images were saved to permanent archive The study was technically adequate CPT: 94501-30-[id number] (complete bilateral study) This study was performed by me, and I personally interpreted all images/videos. Based on my clinical judgement, these images were adequate and did not necessitate further imaging. Critical Care <Ollie Rees MD - Last Filed: 06/05/23 06:50> Critical Care Time Critical Care Time: No
[2023-06-05] MEDS: METHOCARBAMOL 500MG TABLET 1500 MG PO (06:46)
[2023-06-05] MEDS: ACETAMINOPHEN 500MG TAB 1000 MG PO (06:46)
[2023-06-05 06:51] LABS: Basophils # 0.1 K/mm3 (0-0.2); Basophils % 0.9 % (0.1-2.0); Eosinophils # 0.1 K/mm3 (0.0-0.4); Eosinophils % 2.7 % (0.1-12.0); Hematocrit 42.8 % (37.0-47.0); Hemoglobin 13.9 g/dL (12.2-16.2); Lymphocytes # 1.9 K/mm3 (0.7-4.5); Mean Corpuscular HGB Conc 32.6 g/dL (31.8-35.4); Mean Corpuscular Hemoglobin 27.6 pg (27.0-31.2); Mean Corpuscular Volume 84.8 fl (81-99); Mean Platelet Volume 7.9 fl (7.4-10.4); Monocytes # 0.2 K/mm3 (0.1-1.0); Monocytes % 3.3 % (1.7-9.3); Neutrophils # 3.1 K/mm3 (1.8-7.8); Neutrophils % 57.1 % (37.0-80.0); Platelet Count 201 K/mm3 (142-424); Red Blood Count 5.04 M/mm3 (4.20-5.40); Red Cell Distribution Width 15.2 % (11.5-17.5); White Blood Count 5.4 K/mm3 (4.8-10.8)
[2023-06-05 06:58] LABS: Activated Partial Thrombo Time 30.5 seconds (22.8-30.6); INR 0.96 (0.9-1.1); Prothrombin Time 10.4 seconds (10.1-12.5)
[2023-06-05 07:01] VITALS: BP 100/55; PULSE 63; O2SAT 99
[2023-06-05 07:04] LABS: Potassium 4.1 mmoL/L (3.5-5.1); Sodium 140 mmol/L (136-145)
[2023-06-05 07:07] LABS: Alanine Aminotransferase 42 U/L (12-78); Albumin Level 3.8 g/dl (3.5-5.0); Albumin/Globulin Ratio 1.4 (1.1-1.8); Alkaline Phosphatase 76 U/L (38-126); Aspartate Amino Transferase 38 U/L (14-36); Bilirubin,Total 0.8 mg/dl (0.2-1.3); Blood Urea Nitrogen 15 mg/dl (7-17); Calcium 8.9 mg/dl (8.4-10.2); Carbon Dioxide 24 mmol/L (22.0-30.0); Creatinine Clearance Estimated 172 mL/min (50-200); Estimated Glomerular Filt Rate 82 ml/min (>60); GFR (African American) 99 ML/MIN (>60); Globulin 2.7 g/dL (1.3-3.2); Glucose 101 mg/dl (74-100); Total Protein,Serum 6.5 g/dl (6.3-8.2)
[2023-06-05 07:24] LABS: Anion Gap 9.1 mEq/L (5-15); Chloride 111 mmol/L (98-107)
[2023-06-05 07:29] VITALS: BP 100/55; PULSE 63; RESP 18; TEMP 37
== END 2023-06-05 07:29 | disposition home or self-care (01) ==
PROVIDERS: Emergency Medicine; Emergency Provider Emergency Medicine; PCP Family Medicine
DX: M79.605 Pain in left leg (principal); Z86.718 Personal history of other venous thrombosis and embolism
CPT/HCPCS: 80053; 85025; 85610; 85730; 96374; 99284

== ENCOUNTER 2023-07-11 06:28 | Outpatient (CLI) | payer BC, SELFPAY ==
[2023-07-11 09:31] LABS: Occult Blood,Stool Negative (Negative)
[2023-07-16 16:21] LABS: Calprotectin, Fecal 38 ug/g (0-120); Pancreatic Elastase, Fecal >800 (>200)
== END 2023-07-11 23:59 | disposition home or self-care (01) ==
LOC: LAB.DROPOF 06:29
PROVIDERS: PCP Family Medicine; Visit Provider Nurse Practitioner
DX: R19.5 Other fecal abnormalities (principal); Z83.79 Family history of other diseases of the digestive system; Z80.0 Family history of malignant neoplasm of digestive organs; Z87.19 Personal history of other diseases of the digestive system
CPT/HCPCS: 82272; 82656; 83993; G0328

== ENCOUNTER 2023-07-31 09:13 | Outpatient (CLI) | payer BC, SELFPAY ==
--- NOTE | 2023-07-31 09:14 | NM_ITS ---
FINAL REPORT TECHNIQUE: 0.54 Millicuries of technetium 99m sulfur colloid was ingested with 2 whole eggs, toast, butter, and 6 oz of water. CLINICAL HISTORY: Evaluate emptying time and any obstruction 9:30 am .54 mci sulfur colloid injected into 2 whole eggs toast with butter 6 ox cup of water FINDINGS: GASTRIC EMPTYING SCAN Static images show normal emptying of the stomach into the small bowel. Based on the time activity curve, the estimated half-emptying time is 70 minutes. IMPRESSION: Normal gastric emptying study. Reviewed, Interpreted and Dictated by Vicente Doran III, MD Transcribed by Joleen George Authenticated and [facility]
[2023-07-31] MEDS: TC99M SULF.COLLOID;1 DOSE (UP TO 20 MCI) IV (12:54)
== END 2023-07-31 23:59 | disposition home or self-care (01) ==
LOC: RAD 09:14
PROVIDERS: PCP Family Medicine; Visit Provider Nurse Practitioner
DX: K31.84 Gastroparesis (principal); R11.10 Vomiting, unspecified
CPT/HCPCS: 78264; A9541

== ENCOUNTER 2023-08-19 07:43 | Outpatient (CLI) | payer BC, SELFPAY ==
--- NOTE | 2023-08-19 07:43 | US_ITS ---
FINAL REPORT CLINICAL HISTORY: eval liver, gb and panc COMPARISON: None FINDINGS: Sonographic images of the abdomen were obtained. There is increased echogenicity noted in the liver consistent with fatty infiltration. The gallbladder has an unremarkable appearance without evidence of gallstones. There is no evidence of biliary ductal dilatation. The common hepatic duct measures 4 mm, which is within normal limits. Limited images of the pancreas are unremarkable. The spleen measures 13 cm in craniocaudal length, borderline in size. The right kidney measures 11.9 in length. The left kidney measures 10.8 in length. There is normal renal echogenicity. There is no evidence of hydronephrosis. The aorta has an unremarkable appearance. Limited images of the inferior vena cava are unremarkable. IMPRESSION: Fatty infiltration of the liver. Borderline splenomegaly. Reviewed, Interpreted and Dictated by Vicente Doran III, MD Transcribed by Keely Braga Authenticated and [facility]
== END 2023-08-19 23:59 | disposition home or self-care (01) ==
LOC: RAD 07:43
PROVIDERS: PCP Family Medicine; Visit Provider Nurse Practitioner
DX: R11.0 Nausea (principal); K31.84 Gastroparesis; R10.9 Unspecified abdominal pain; Z87.19 Personal history of other diseases of the digestive system
CPT/HCPCS: 76700

== ENCOUNTER 2023-09-04 06:56 | Outpatient (CLI) | payer BC, SELFPAY ==
[2023-09-04 07:59] LABS: INR 0.94 (0.9-1.1); Prothrombin Time 10.6 seconds (10.1-12.5)
[2023-09-04 08:20] LABS: Alanine Aminotransferase 39 U/L (12-78); Albumin Level 3.7 g/dl (3.5-5.0); Albumin/Globulin Ratio 1.6 (1.1-1.8); Alkaline Phosphatase 70 U/L (38-126); Anion Gap 7.9 mEq/L (5-15); Aspartate Amino Transferase 39 U/L (14-36); Bilirubin,Total 0.7 mg/dl (0.2-1.3); Blood Urea Nitrogen 13 mg/dl (7-17); Calcium 8.5 mg/dl (8.4-10.2); Carbon Dioxide 23 mmol/L (22.0-30.0); Chloride 112 mmol/L (98-107); Estimated Glomerular Filt Rate 96 ml/min (>60); GFR (African American) 116 ML/MIN (>60); Globulin 2.3 g/dL (1.3-3.2); Glucose 93 mg/dl (74-100); Potassium 3.9 mmoL/L (3.5-5.1); Sodium 139 mmol/L (136-145)
[2023-09-05 12:53] LABS: AFP, Tumor Marker 2.2 ng/mL (0.0-6.4)
[2023-10-06 15:09] LABS: Fibrosis Score 0.08; Fibrosis Stage F0-NO FIBROSIS; Steatosis Score 0.48
[2023-10-06 15:10] LABS: Alpha 2-Macroglobulins, Qn 181 mg/dL; NASH Grade N1-MILD NASH; NASH Score 0.39; Steatosis Grade S1-MILD STEATOSIS
[2023-10-06 15:11] LABS: Apolipoprotein A-1 126 mg/dL; Bilirubin, Total 0.3 mg/dL; Haptoglobin 144 mg/dL
[2023-10-06 15:12] LABS: ALT (SGPT) P5P 35 IU/L; AST (SGOT) P5P 33 IU/L; Cholesterol, Total 151 mg/dL; GGT 28 IU/L
[2023-10-06 15:13] LABS: Glucose 92 mg/dL; Triglycerides 176 mg/dL
== END 2023-09-04 23:59 | disposition home or self-care (01) ==
PROVIDERS: PCP Family Medicine; Visit Provider Nurse Practitioner
DX: K76.0 Fatty (change of) liver, not elsewhere classified (principal)
CPT/HCPCS: 36415; 80053; 82105; 85610

== ENCOUNTER 2023-10-02 09:33 | Day surgery (SDC) | payer BC, SELFPAY ==
[2023-10-02] MEDS: LACTATED RINGERS 1000ML 1,000 ML 25 ML IV (10:03)
[2023-10-02 10:04] VITALS: BP 125/76; PULSE 62; RESP 16; TEMP 36.6; O2SAT 100; BMI 37.4
--- NOTE | 2023-10-02 11:17 | EXP.ANES.CKL ---
[facility] Disclaimer: The information contained in this section may have been updated after the patient was seen, as this information can be updated by other users. Medical History Scoliosis Spinal stenosis Degenerative disc disease DVT (deep venous thrombosis) Lumbar radiculopathy Surgical History Lipoma of left lower extremity [place] teeth extracted H/O eye surgery H/O adenoidectomy History of tonsillectomy History of S/P dilation and curettage History of partial hysterectomy Status post insertion of iliac artery stent Family History Mother Hypertension Stroke Diabetes Father Hypertension Stroke Coronary artery disease Grandmother Cancer Social History Smoking Status: Never smoker alcohol intake: never substance use type: denies use current occupational status: employed Travel in the last 8 weeks: Inside the [place] [facility] Anesthesia Checklist Patient Identification Patient Identification: Arm Band Structural Data Admitted From: Home Planned Operative Procedure/s: EGD Consent for Planned Operative Procedure(s) Verified: Yes Verified Documents: Surgical Consent and History and Physical NPO Status Verified Time NPO: 00:00 Additional verifications Anesthesia Reactions: No Airway Assessment Mallampati Score:: Class II C-Spine Mobility Assessed: Yes TMJ Mobility Assessed: Yes Dentition: Good Dentition Neurological Assessment Level of Consciousness: Awake, Alert and Appropriate Anesthesia Plan Anesthesia Risk discussed: Yes Anesthesia Plan: Verified ASA Class: II Anesthesia Type: MAC
[2023-10-02 11:40] VITALS: O2SAT 100
[2023-10-02 11:50] VITALS: BP 120/72; PULSE 54; RESP 17; TEMP 36.9; O2SAT 100
--- NOTE | 2023-10-02 11:57 | HMH.SCOPE ---
Procedure: Date: 10/02/23 Patient Date of :: 1990 Procedure Performed:: EGD & dilation Indications:: Dysphagia Performing Provider:: Cadence Landon MD Referring Provider:: Barbara Landon APRN Sedation:: Propofol Procedure:: The gastroscope was gently passed through the incisoral orifice into the oral cavity and under direct visualization the esophagus was intubated. The endoscope was passed down the esophagus, through the stomach, and into the duodenum. Color, texture, mucosa, and anatomy of the esophagus, stomach, and duodenum were carefully examined with the scope. Findings:: Oropharynx: normal Esophagus: normal, empiric dilation performed with 58F bougie EG Junction: intact at 40 cm Cardia: normal Fundus: normal Body: normal Antrum: normal Duodenal bulb: normal Duodenum (second and third portion): normal Impression: Symptomatic dysphagia treated with bougie dilation Recommendations:: Repeat dilation in 3-5 years as clinically indicated Complications:: None Estimated blood obtained (mL): 0 Colonoscopy Component Colonoscopy Component Was a colonoscopy performed during today's procedure?: No
[2023-10-02 12:00] VITALS: BP 117/71; PULSE 51; RESP 17; O2SAT 99
[2023-10-02 12:10] VITALS: BP 131/76; PULSE 46; RESP 17; O2SAT 100
[2023-10-02 12:20] VITALS: BP 121/84; PULSE 53; RESP 17; O2SAT 100
== END 2023-10-02 12:35 | disposition home or self-care (01) ==
PROVIDERS: PCP Family Medicine; Visit Provider Internal Medicine Gastroenterology
PROC: 0DJ08ZZ Inspection of Upper Intestinal Tract, Via Natural or Artificial Opening Endoscopic (ICD-10-PCS; CPT 43235; principal; 2023-10-02 14:00)
DX: R13.10 Dysphagia, unspecified (principal)
CPT/HCPCS: 43450; J7120

== ENCOUNTER 2024-09-10 21:10 | Emergency (ER) | payer MEDICAID, SELFPAY ==
[2024-09-10 21:26] VITALS: BP 132/64; PULSE 63; RESP 20; TEMP 36.9; O2SAT 98; BMI 34.9
--- NOTE | 2024-09-10 22:42 | CT_ITS ---
PROCEDURE INFORMATION: Exam: CT Abdomen And Pelvis With Contrast Exam date and time: 09/10/2024 11:14 PM Age: 34 years old Clinical indication: Abdominal pain; Generalized; Additional info: Luq/flank pain, HX splenomegaly TECHNIQUE: Imaging protocol: Computed tomography of the abdomen and pelvis with contrast. Radiation optimization: All CT scans at this facility use at least one of these dose optimization techniques: automated exposure control; mA and/or kV adjustment per patient size (includes targeted exams where dose is matched to clinical indication); or iterative reconstruction. Contrast material: ISOVUE; Contrast volume: 75 ml; Contrast route: IV; COMPARISON: US ABDOMEN COMPLETE 08/19/2023 8:07 AM FINDINGS: Liver: Normal. No mass. Gallbladder and biliary ducts: Normal. No calcified stones. No ductal dilation. Pancreas: Normal. No ductal dilation. Spleen: The spleen measures 12 cm craniocaudal. Adrenal glands: Normal. No mass. Kidneys and ureters: Normal. No hydronephrosis. Stomach and bowel: Unremarkable. No obstruction. No mucosal thickening. Appendix: No evidence of appendicitis. Intraperitoneal space: Unremarkable. No free air. No significant fluid collection. Vasculature: Endovascular stents in the left iliac vein. Intraluminal calcification narrows the lumen in the external iliac vein. Lymph nodes: Unremarkable. No enlarged lymph nodes. Urinary bladder: Unremarkable as visualized. Reproductive: Unremarkable as visualized. Bones/joints: Unremarkable. No acute fracture. Soft tissues: Unremarkable. IMPRESSION: No acute findings. Possible flow-limiting calcification within the left external iliac vein stent. Consider venography versus ultrasound follow-up for further evaluation.
[2024-09-10 22:44] LABS: Hematocrit 42.9 % (37.0-47.0); Hemoglobin 14.2 g/dL (12.2-16.2); Immature Granulocytes % 0.2 %; Mean Corpuscular HGB Conc 33.1 g/dL (31.8-35.4); Mean Corpuscular Hemoglobin 27.5 pg (27.0-31.2); Mean Corpuscular Volume 83.1 fl (81-99); Nucleated Red Blood Cells % 0 %; Platelet Count 235 K/mm3 (142-424); Red Blood Count 5.16 M/mm3 (4.20-5.40); Red Cell Distribution Width-SD 45.6 fL; White Blood Count 9.4 K/mm3 (4.8-10.8)
--- NOTE | 2024-09-10 22:44 | [facility].EDGENADL ---
Discharge Plan Disposition Patient Disposition: Home, Self-Care Prescriptions Prescriptions: No Action cetirizine 10 mg tablet 10 mg PO DAILY 30 Days Qty: 30 2RF diclofenac sodium 75 mg tablet,delayed release (DR/EC) 75 mg PO BID 30 Days Qty: 60 2RF escitalopram oxalate 10 mg tablet 10 mg PO DAILY 30 Days Qty: 30 2RF pantoprazole 40 mg tablet,delayed release (DR/EC) 40 mg PO DAILY 30 Days Qty: 30 2RF isausqtteidweiw-cisxpmaoq-UK [Bromfed DM] 2-30-10 mg/5 mL syrup 10 ml PO Q4-6H PRN (Reason: cold symptoms) Qty: 118 1RF tizanidine 4 mg tablet 4 mg PO Q8H PRN (Reason: muscle spasticity) 14 Days Qty: 42 0RF Referrals Follow up/Referrals: Ti Lofton MD [Primary Care Provider, Internal Medicine] - See instructions Activity Restrictions/Add. Instructions Additional Instructions/Restrictions: Call and follow-up with your primary care doctor to get a formal ultrasound to assess for your stent narrowing. Please return to the emergency department if you develop any new or worsening symptoms or become concerned for your health. Clinical Impressions Clinical Impression: Abdominal pain, LUQ, Stenosis of peripheral vascular stent, initial encounter Instructions Patient Instructions: DI for Acute Abdominal Pain Print Language Print Language: Urdu Discharge ED Provider: Fabrizio Tierney General Adult HPI <Fabrizio Tierney MD - Last Filed: 09/11/24 11:09> General Chief complaint: Abdominal Pain Stated complaint: pain in left side,nausea Time Seen by Provider: 09/10/24 22:35 Mode of Arrival: Ambulatory Source of Information: Patient Description of Symptoms (Recalled from ER Triage Doc. by RN): patient states she is having spleen pain. patient states she was here about a year ago and was told she had an enlarged spleen. presents today with left sided pain that radiates into her back. History of Present Illness HPI narrative: Sania Eisenberg is a 34-year-old female with a history of splenomegaly, fatty liver who presents emerged part for complaints of left flank and left upper quadrant pain. Patient states that intermittently over the last 2 weeks, she has had sharp pains in the left flank and left upper quadrant that have become more intense today. She does report some nausea but denies any vomiting. She denies any dysuria or hematuria. She has not had any diarrhea or fever. She denies any chest pain or shortness of breath. She describes her pain as spleen pain . Related Data Previous Rx's ?Medication ?Instructions ?Recorded gxyddnoufjwckkf-jknfpjuphhdgkwv-ZA 10 ml PO Q4-6H PRN cold symptoms 07/13/24 2 mg-30 mg-10 mg/5 mL oral syrup #118 mL (Bromfed DM) cetirizine 10 mg tablet 10 mg PO DAILY 30 days #30 tabs 07/13/24 diclofenac sodium 75 mg 75 mg PO BID 30 days #60 tabs 07/13/24 tablet,delayed release escitalopram oxalate 10 mg tablet 10 mg PO DAILY 30 days #30 tabs 07/13/24 pantoprazole 40 mg tablet,delayed 40 mg PO DAILY 30 days #30 tabs 07/13/24 release tizanidine 4 mg tablet 4 mg PO Q8H PRN muscle spasticity 08/17/24 2 weeks #42 tabs Allergies Allergy/AdvReac Type Severity Reaction Status Date / Time Penicillins Allergy Verified 07/13/24 12:43 propranolol (From Inderal [place]) Allergy Verified 07/13/24 12:43 COUNTS INCLUDE 234 BEDS AT THE [facility] <Fabrizio Tierney MD - Last Filed: 09/11/24 11:09> COUNTS INCLUDE 234 BEDS AT THE [facility] Disclaimer: The information contained in this section may have been updated after the patient was seen, as this information can be updated by other users. Medical History Scoliosis Spinal stenosis Degenerative disc disease DVT (deep venous thrombosis) Lumbar radiculopathy Surgical History Lipoma of left lower extremity [place] teeth extracted H/O eye surgery H/O adenoidectomy History of tonsillectomy History of S/P dilation and curettage History of partial hysterectomy Status post insertion of iliac artery stent Family History Mother Hypertension Stroke Diabetes Father Hypertension Stroke Coronary artery disease Grandmother Cancer Social History Smoking Status: Current some day smoker alcohol intake: never substance use type: denies use current occupational status: employed Travel in the last 8 weeks?: Inside the [place] Have you lived/traveled outside US in past 30 days?: No Contact w/someone who lives/traveled outside US past 30 days?: No Exposure to someone with infectious disease in past 14 days?: No Do you have a fever (greater than 100.4 F or 38 C)?: No Have you tested positive for COVID-19?: No Exposed to someone with COVID-19 in past 14 days?: No Do you have a sore throat?: No Do you have a cough?: No Do you have any weakness?: No Do you have any diarrhea?: No Are you experiencing any unusual bleeding?: No Do you have any muscle aches/pain?: No Do you have any abdominal pain?: No Are you experiencing loss of taste or smell?: No Other Medical History Have you received the Pneumonia Vaccine: Yes <Fabrizio Tierney MD - Last Filed: 09/11/24 11:09> ROS Obtained: Yes Systems reviewed as appropriate & no additional complaints except as documented Physical Exam <Fabrizio Tierney MD - Last Filed: 09/11/24 11:09> General General appearance: alert and in no apparent distress Head Head exam: atraumatic Eye Eye exam: Present normal appearance ENT ENT exam: Present normal external ear exam Neck Neck exam: Present full ROM Chest Chest inspection: Present symmetric chest wall rise Respiratory Respiratory exam: Present normal lung sounds bilaterally; Absent respiratory distress Cardiovascular Cardiovascular exam: Present regular rate and normal rhythm Abdominal Exam Abdominal exam: Present soft, tenderness (Left upper quadrant and left flank) and guarding (Left upper quadrant); Absent distention Extremities Exam Extremities exam: Present normal inspection Back Exam Back exam: Present normal inspection Neurological Exam Neurological exam: Present alert and oriented X3 Psychiatric Psychiatric exam: Present normal affect Skin Skin exam: Present warm and dry Medical Decision Making <Fabrizio Tierney MD - Last Filed: 09/11/24 11:09> Medical Records Screening: Per USPSTF and CDC recommendations, given the prevalence of disease in our region, it is our hospital?s policy to screen for HIV and viral Hepatitis for all patients aged 18 and over and those with ongoing risk factors. Javier Inquiry Pt receiving controlled substance: No Vital Signs: 09/10/24 21:26 09/10/24 23:30 09/11/24 00:00 Temperature 98.4 F Temperature Source Oral Pulse Rate 56 L 56 L Pulse Rate [Left] 63 Respiratory Rate 20 Blood Pressure 110/61 108/57 L Blood Pressure [Right Arm] 132/64 Blood Pressure Mean [Right Arm] 86 Blood Pressure Source [Right Arm] Automatic Cuff Blood Pressure Position Blood Pressure Position [Right Arm] Sitting 02 Sat by Pulse Oximetry 98 98 98 Oxygen Delivery Method Room Air Room Air Room Air 09/11/24 00:18 Temperature 97.6 F Temperature Source Oral Pulse Rate 56 L Pulse Rate [Left] Respiratory Rate 16 Blood Pressure 108/59 L Blood Pressure [Right Arm] Blood Pressure Mean [Right Arm] Blood Pressure Source [Right Arm] Blood Pressure Position Supine Blood Pressure Position [Right Arm] 02 Sat by Pulse Oximetry Oxygen Delivery Method Room Air Lab Data Lab Results 09/10/24 22:25: WBC 9.4, RBC 5.16, Hgb 14.2, Hct 42.9, MCV 83.1, MCH 27.5, MCHC 33.1, RDW 15.0, Plt Count 235, MPV 10.0, Neut % (Auto) 58.1, Lymph % (Auto) 35.8, [place] % (Auto) 4.3, Eos % (Auto) 1.2, Baso % (Auto) 0.4, Neut # (Auto) 5.5, Lymph # (Auto) 3.4, [place] # (Auto) 0.4, Eos # (Auto) 0.1, Baso # (Auto) 0.0, Sodium 135 L, Potassium 3.6, Chloride 103, Carbon Dioxide 26, Anion Gap 9.6, BUN 14, Creatinine 0.90, Estimated Creat Clear 144, Estimated GFR 71, Est GFR ( Amer) 86, Glucose 86, Calcium 9.3, Total Bilirubin 0.3, AST 26, ALT 16, Alkaline Phosphatase 71, Total Protein 7.2, Albumin 4.5, Globulin 2.7, Albumin/Globulin Ratio 1.7, Lipase 80, HCV Ab TEJ w/Rflx PCR Qn Negative, HIV Ag/Ab Combo Qual Negative 09/10/24 22:27: Serum HCG, Qual Negative 09/10/24 23:00: VBG pH 7.43 H, VBG pCO2 35.5, VBG pO2 83.4 H, VBG HCO3 22.8 L, VBG Total CO2 23.9, VBG O2 Saturation 96.8 H, VBG Base Excess -1.0, VBG Lactic Acid 1.1 09/10/24 23:02: Urine Color Yellow, Urine Appearance Clear, Urine pH 6.0, Ur Specific [place] 1.020, Urine Protein Negative, Urine Glucose (UA) Negative, Urine Ketones Negative, Urine Blood Negative, Urine Nitrate Negative, Urine Bilirubin Negative, Urine Urobilinogen 0.2, Ur Leukocyte Esterase Negative, Urine RBC None, Urine WBC None, Ur Squamous Epith Cells 3-5, Urine Bacteria Trace 09/10/24 22:25 09/10/24 22:25 Orders (Tests/Meds): ED MEDICATIONS Discontinued Medications Generic Name Dose Route Start Last Admin Trade Name Freq PRN Reason Stop Dose Admin Iopamidol 75 ml 09/10/24 23:11 09/10/24 23:12 Iopamidol-370 (76%);100ml Bottle IV 09/10/24 23:12 75 ml ONCE ONE Administration Morphine Sulfate 4 mg 09/10/24 22:42 09/10/24 23:03 Morphine 4mg/Ml Syringe IV 09/10/24 22:43 4 mg ONCE ONE Administration Sodium Chloride 10 ml 09/10/24 23:11 09/10/24 23:12 Sodium Chloride 0.9% 10ml Syr (Rad Only) IV 10/10/24 23:10 10 ml NEEDED PRN Administration Maintain IV Site ORDERS Category Date Time Status CT abdomen pelvis w con Stat Cat Scan 09/10/24 22:42 Completed CBC w/Auto Diff [Complete Blood Count Auto Diff] Stat Lab 09/10/24 22:25 Completed CMP [Comprehensive Metabolic Panel] Stat Lab 09/10/24 22:25 Completed HIV Combo Stat Lab 09/10/24 22:25 Completed Hepatitis C Ab Qual. W/ RFX Stat Lab 09/10/24 22:25 Completed Lipase Stat Lab 09/10/24 22:25 Completed Serum [HCG Qualitative, Serum] Stat Lab 09/10/24 22:27 Completed UA [Urinalysis and Microscopic] Stat Lab 09/10/24 23:02 Completed VBG [Venous Blood Gas] Stat RT 09/10/24 23:11 Ordered Medical Decision Narrative: Sania Eisenberg is a 34-year-old female with a history of splenomegaly, fatty liver who presents emerged part for complaints of left flank and left upper quadrant pain. Patient states that intermittently over the last 2 weeks, she has had sharp pains in the left flank and left upper quadrant that have become more intense today. She does report some nausea but denies any vomiting. She denies any dysuria or hematuria. She has not had any diarrhea or fever. She denies any chest pain or shortness of breath. She describes her pain as spleen pain . On arrival, patient is hemodynamically stable, afebrile, in no acute respiratory distress. Physical exam, stated above, revealed an overall well-appearing female in no distress. She has tenderness in her left upper quadrant and left flank area but cardiopulmonary exam is unremarkable. Abdomen is soft and nonperitonitic. The remainder of her physical exam is grossly unremarkable. Differential diagnosis includes, but is not limited to: Acute pancreatitis, enlarged spleen, ureterolithiasis, urinary tract infection/pyelonephritis, among others. The most morbid conditions were considered and workup was based on these. Workup in the emergency department included: CT abdomen pelvis with IV contrast, CBC, CMP, lipase, test, VBG with lactate, urinalysis. Patient was treated symptomatically with 4 mg IV Zofran 4 mg IV morphine. Workup demonstrated negative test, urinalysis without evidence of infection, lipase normal at 80, liver enzymes within normal limits, no electrolyte derangements other than mild hyponatremia of 135 but nonactionable. No XANDER, VBG normal with lactate normal at 1.1 and pH very mildly elevated at 7.43, bicarb mildly low at 22.8. No leukocytosis, no anemia, platelets normal at 235 At this time, patient's CT imaging is pending. Patient's care transferred to the oncoming physician, Dr. Ignacio, pending completion of her workup Mateus CAMPOS: I assumed care of the patient at the time of handoff from the prior provider. On reassessment patient reports some symptomatic improvement. CT imaging was independently interpreted by me and shows no evidence of significant splenic abnormality. It does show incidentally noted calcium buildup within her left external iliac stent. Patient reports that she has had chronic pain in that left leg ever since the stents were put in but has not had any significant difference in symptoms over the last weeks to months. Given chronicity of symptoms, I think patient is stable for outpatient follow-up. She was instructed to follow-up with her primary care doctor to obtain formal ultrasound for further assessment. Patient was agreeable to plan and was discharged in stable condition with return precautions. <Haim Ignacio MD - Last Filed: 09/12/24 00:58> Vital Signs: 09/10/24 21:26 09/10/24 23:30 09/11/24 00:00 Temperature 98.4 F Temperature Source Oral Pulse Rate 56 L 56 L Pulse Rate [Left] 63 Respiratory Rate 20 Blood Pressure 110/61 108/57 L Blood Pressure [Right Arm] 132/64 Blood Pressure Mean [Right Arm] 86 Blood Pressure Source [Right Arm] Automatic Cuff Blood Pressure Position Blood Pressure Position [Right Arm] Sitting 02 Sat by Pulse Oximetry 98 98 98 Oxygen Delivery Method Room Air Room Air Room Air 09/11/24 00:18 Temperature 97.6 F Temperature Source Oral Pulse Rate 56 L Pulse Rate [Left] Respiratory Rate 16 Blood Pressure 108/59 L Blood Pressure [Right Arm] Blood Pressure Mean [Right Arm] Blood Pressure Source [Right Arm] Blood Pressure Position Supine Blood Pressure Position [Right Arm] 02 Sat by Pulse Oximetry Oxygen Delivery Method Room Air Lab Data Lab Results 09/10/24 22:25: WBC 9.4, RBC 5.16, Hgb 14.2, Hct 42.9, MCV 83.1, MCH 27.5, MCHC 33.1, RDW 15.0, Plt Count 235, MPV 10.0, Neut % (Auto) 58.1, Lymph % (Auto) 35.8, [place] % (Auto) 4.3, Eos % (Auto) 1.2, Baso % (Auto) 0.4, Neut # (Auto) 5.5, Lymph # (Auto) 3.4, [place] # (Auto) 0.4, Eos # (Auto) 0.1, Baso # (Auto) 0.0, Sodium 135 L, Potassium 3.6, Chloride 103, Carbon Dioxide 26, Anion Gap 9.6, BUN 14, Creatinine 0.90, Estimated Creat Clear 144, Estimated GFR 71, Est GFR ( Amer) 86, Glucose 86, Calcium 9.3, Total Bilirubin 0.3, AST 26, ALT 16, Alkaline Phosphatase 71, Total Protein 7.2, Albumin 4.5, Globulin 2.7, Albumin/Globulin Ratio 1.7, Lipase 80, HCV Ab TEJ w/Rflx PCR Qn Negative, HIV Ag/Ab Combo Qual Negative 09/10/24 22:27: Serum HCG, Qual Negative 09/10/24 23:00: VBG pH 7.43 H, VBG pCO2 35.5, VBG pO2 83.4 H, VBG HCO3 22.8 L, VBG Total CO2 23.9, VBG O2 Saturation 96.8 H, VBG Base Excess -1.0, VBG Lactic Acid 1.1 09/10/24 23:02: Urine Color Yellow, Urine Appearance Clear, Urine pH 6.0, Ur Specific [place] 1.020, Urine Protein Negative, Urine Glucose (UA) Negative, Urine Ketones Negative, Urine Blood Negative, Urine Nitrate Negative, Urine Bilirubin Negative, Urine Urobilinogen 0.2, Ur Leukocyte Esterase Negative, Urine RBC None, Urine WBC None, Ur Squamous Epith Cells 3-5, Urine Bacteria Trace Orders (Tests/Meds): ED MEDICATIONS Discontinued Medications Generic Name Dose Route Start Last Admin Trade Name Darrenq PRN Reason Stop Dose Admin Iopamidol 75 ml 09/10/24 23:11 09/10/24 23:12 Iopamidol-370 (76%);100ml Bottle IV 09/10/24 23:12 75 ml ONCE ONE Administration Morphine Sulfate 4 mg 09/10/24 22:42 09/10/24 23:03 Morphine 4mg/Ml Syringe IV 09/10/24 22:43 4 mg ONCE ONE Administration Sodium Chloride 10 ml 09/10/24 23:11 09/10/24 23:12 Sodium Chloride 0.9% 10ml Syr (Rad Only) IV 10/10/24 23:10 10 ml NEEDED PRN Administration Maintain IV Site ORDERS Category Date Time Status CT abdomen pelvis w con Stat Cat Scan 09/10/24 22:42 Completed CBC w/Auto Diff [Complete Blood Count Auto Diff] Stat Lab 09/10/24 22:25 Completed CMP [Comprehensive Metabolic Panel] Stat Lab 09/10/24 22:25 Completed HIV Combo Stat Lab 09/10/24 22:25 Completed Hepatitis C Ab Qual. W/ RFX Stat Lab 09/10/24 22:25 Completed Lipase Stat Lab 09/10/24 22:25 Completed Serum [HCG Qualitative, Serum] Stat Lab 09/10/24 22:27 Completed UA [Urinalysis and Microscopic] Stat Lab 09/10/24 23:02 Completed VBG [Venous Blood Gas] Stat RT 09/10/24 23:11 Ordered Medical Decision Narrative: Sania Eisenberg is a 34-year-old female with a history of splenomegaly, fatty liver who presents emerged part for complaints of left flank and left upper quadrant pain. Patient states that intermittently over the last 2 weeks, she has had sharp pains in the left flank and left upper quadrant that have become more intense today. She does report some nausea but denies any vomiting. She denies any dysuria or hematuria. She has not had any diarrhea or fever. She denies any chest pain or shortness of breath. She describes her pain as spleen pain . Mateus CAMPOS: I assumed care of the patient at the time of handoff from the prior provider. On reassessment patient reports some symptomatic improvement. CT imaging was independently interpreted by me and shows no evidence of significant splenic abnormality. It does show incidentally noted calcium buildup within her left external iliac stent. Patient reports that she has had chronic pain in that left leg ever since the stents were put in but has not had any significant difference in symptoms over the last weeks to months. Given chronicity of symptoms, I think patient is stable for outpatient follow-up. She was instructed to follow-up with her primary care doctor to obtain formal ultrasound for further assessment. Patient was agreeable to plan and was discharged in stable condition with return precautions. Critical Care <Haim Ignacio MD - Last Filed: 09/12/24 00:58> Critical Care Time Critical Care Time: No
[2024-09-10 22:56] LABS: Chloride 103 mmol/L (98-107)
[2024-09-10 22:57] LABS: Albumin Level 4.5 g/dl (3.5-5.0); Potassium 3.6 mmoL/L (3.5-5.1); Sodium 135 mmol/L (136-145)
[2024-09-10 22:59] LABS: Blood Urea Nitrogen 14 mg/dl (7-17); Creatinine Clearance Estimated 144 mL/min (50-200); Creatinine,Serum 0.90 mg/dl (0.52-1.04); Estimated Glomerular Filt Rate 71 ml/min (>60); GFR (African American) 86 ML/MIN (>60)
[2024-09-10 23:00] LABS: HCG Qualitative, Serum Negative (Negative)
[2024-09-10 23:00] LABS: Alanine Aminotransferase 16 U/L (12-78); Albumin/Globulin Ratio 1.7 (1.1-1.8); Alkaline Phosphatase 71 U/L (38-126); Anion Gap 9.6 mEq/L (5-15); Aspartate Amino Transferase 26 U/L (14-36); Bilirubin,Total 0.3 mg/dl (0.2-1.3); Calcium 9.3 mg/dl (8.4-10.2); Carbon Dioxide 26 mmol/L (22.0-30.0); Globulin 2.7 g/dL (1.3-3.2); Glucose 86 mg/dl (74-100); Total Protein,Serum 7.2 g/dl (6.3-8.2)
[2024-09-10 23:01] LABS: Lipase 80 U/L (23-300)
[2024-09-10] MEDS: MORPHINE 4MG/ML SYRINGE 4 MG IV (23:03)
[2024-09-10 23:09] LABS: VBG HCO3 22.8 mmol/L (23-30); VBG PCO2 35.5 mmol/L (35-51); VBG PH 7.43 mmol/L (7.31-7.41); VBG PO2 83.4 mmol/L (28-40)
[2024-09-10 23:10] LABS: Lactate Venous 1.1 mmol/L (0.4-2.0)
[2024-09-10] MEDS: IOPAMIDOL-370 (76%);100ML BOTTLE 75 ML IV (23:12)
[2024-09-10] MEDS: SODIUM CHLORIDE 0.9% 10ML SYR (RAD ONLY) 10 ML IV (23:12)
[2024-09-10 23:20] LABS: Microscopic, Urine URINE MICROSCOPIC (MICROSCOPIC)
[2024-09-10 23:30] VITALS: BP 110/61; PULSE 56; O2SAT 98
[2024-09-10 23:33] LABS: Bilirubin,Urine Negative (Negative); Color,Urine YELLOW (Yellow); Glucose,Urine (UA) Negative (Negative); Ketones,Urine Negative (Negative); Leukocyte Esterase,Urine Negative (Negative); PH,Urine 6.0 (5.0-8.5); Protein,Urine Negative (Negative); Specific Gravity, Urine 1.020 (1.005-1.030); Urobilinogen,Urine 0.2 EU/dl (0.2)
[2024-09-10 23:50] LABS: Hepatitis C Ab Qual. W/ RFX NEGATIVE (Negative)
[2024-09-11] VITALS: BP 108/57; PULSE 56; O2SAT 98
[2024-09-11 00:14] LABS: Bacteria,Urine Trace /lpf
[2024-09-11 00:18] VITALS: BP 108/59; PULSE 56; RESP 16; TEMP 36.4; O2SAT 98
== END 2024-09-11 00:19 | disposition home or self-care (01) ==
PROVIDERS: Emergency Provider Student in an Organized Health Care Education/Training Program; PCP Family Medicine
DX: R10.32 Left lower quadrant pain (principal); T82.856A Stenosis of peripheral vascular stent, initial encounter; F17.210 Nicotine dependence, cigarettes, uncomplicated
CPT/HCPCS: 74177; 80053; 81001; 82803; 83690; 84703; 85025; 86803; 87389; 96374; 99285; J2270; Q9967

== ENCOUNTER 2024-10-15 22:02 | Emergency (ER) | payer MEDICAID, SELFPAY ==
[2024-10-15 22:35] VITALS: BP 109/59; PULSE 91; RESP 18; TEMP 36.9; O2SAT 98; BMI 35.2
--- NOTE | 2024-10-15 23:20 | ED_ITS ---
Discharge Plan Disposition Patient Disposition: Home, Self-Care Prescriptions Prescriptions: New methocarbamol 500 mg tablet 1,500 mg PO Q8 PRN (Reason: pain) Qty: 30 0RF No Action diclofenac sodium 75 mg tablet,delayed release (DR/EC) 75 mg PO BID 30 Days Qty: 60 2RF cetirizine 10 mg tablet 10 mg PO DAILY 30 Days Qty: 30 2RF escitalopram oxalate 10 mg tablet 10 mg PO DAILY 30 Days Qty: 30 2RF pantoprazole 40 mg tablet,delayed release (DR/EC) 40 mg PO DAILY 30 Days Qty: 30 2RF tizanidine 4 mg tablet See Rx Instructions .ROUTE .COMPLEX Qty: 42 0RF Dose Instruction: TAKE 1 TABLET EVERY 8 HOURS NEEDED FOR MUSCLE SPASTICITY FOR 14 DAYS Rx Instructions: TAKE 1 TABLET EVERY 8 HOURS NEEDED FOR MUSCLE SPASTICITY FOR 14 DAYS Referrals Follow up/Referrals: Mira Naqvi APRN [Primary Care Provider, Family Practice] - See instructions Activity Restrictions/Add. Instructions Additional Instructions/Restrictions: Please follow-up with your primary care provider. Please return to the emergency department if you develop any new or worsening symptoms or become concerned for your health. Clinical Impressions Clinical Impression: Chronic pain of left lower extremity Print Language Print Language: Arabic Discharge ED Provider: Haim Ignacio General Chief complaint: Weakness Stated complaint: Left leg pain,stent in leg from DVT Time Seen by Provider: 10/15/24 23:01 Mode of Arrival: Wheelchair Source of Information: Patient Description of Symptoms (Recalled from ER Triage Doc. by RN): Pt states she had a CT done that showed 50% blockage in left leg that had stents placed 10 years ago. Pt states she started having pain 2 hours ago with coldness and tingling that comes and goes. Pt stes hard to bear weight and has been losing balance while ambulating. Pulses strong and equal and skin warm to touch BLE. History of Present Illness HPI narrative: 34-year-old female with history of left lower extremity issues presents for worsening of her chronic symptoms. She reports that she had complications from and D&C that resulted in her having a right iliac vein stent after having DVTs. Patient thinks she had an arterial stent but on review of her chart it appears that she has a venous stent. She reports that she has chronic cramping and numbness and pain in the leg. Today the symptoms are worse than normal and more persistent than normal and did not resolve with her normal muscle relaxers. She denies any new swelling, color changes, weakness in the leg. Related Data Previous Rx's ?Medication ?Instructions ?Recorded diclofenac sodium 75 mg 75 mg PO BID 30 days #60 tab s 07/13/24 tablet,delayed release cetirizine 10 mg tablet 10 mg PO DAILY 30 days #30 t abs 10/12/24 escitalopram oxalate 10 mg tablet 10 mg PO DAILY 30 da ys #30 tabs 10/12/24 pantoprazole 40 mg tablet,delayed 40 mg PO DAILY 30 da ys #30 tabs 10/12/24 release tizanidine 4 mg tablet See Rx Instructions .Route 0 10/12/24 .COMPLEX #42 tabs methocarbamol 500 mg tablet 1,500 mg (3 x 500 mg) PO Q 8 PRN 10/16/24 pain #30 tabs Allergies Allergy/AdvReac Type Severity Reaction Status Date / Time Penicillins Allergy Verified 09/17/24 10:21 propranolol (From Inderal [place]) Allergy Verified 09/17/24 10:21 [facility] Disclaimer: The information contained in this section may have been updated after the patient was seen, as this information can be updated by other users. Medical History Scoliosis Spinal stenosis Degenerative disc disease DVT (deep venous thrombosis) Lumbar radiculopathy Surgical History Lipoma of left lower extremity Wright teeth extracted H/O eye surgery H/O adenoidectomy History of tonsillectomy History of S/P dilation and curettage History of partial hysterectomy Status post insertion of iliac artery stent Family History Mother Hypertension Stroke Diabetes Father Hypertension Stroke Coronary artery disease Grandmother Cancer Social History Smoking Status: Current every day smoker alcohol intake: never substance use type: denies use current occupational status: employed Travel in the last 8 weeks?: Inside the [place] Have you lived/traveled outside [place] in past 30 days?: No Contact w/someone who lives/traveled outside [place] past 30 days?: No Exposure to someone with infectious disease in past 14 days?: No Do you have a fever (greater than 100.4 F or 38 C)?: No Have you tested positive for COVID-19?: No Exposed to someone with COVID-19 in past 14 days?: No Do you have a sore throat?: No Do you have a cough?: No Do you have any weakness?: No Do you have any diarrhea?: No Are you experiencing any unusual bleeding?: No Do you have any muscle aches/pain?: No Do you have any abdominal pain?: No Are you experiencing loss of taste or smell?: No Other Medical History Have you received the Pneumonia Vaccine: Yes ROS Obtained: Yes All systems reviewed & no additional complaints except as documented Physical Exam General General appearance: alert and in no apparent distress Head Head exam: atraumatic and normocephalic Eye Eye exam: Present normal appearance, PERRL and EOMI ENT ENT exam: Present normal oropharynx and normal external ear exam Neck Neck exam: Present normal inspection and full ROM Chest Chest inspection: Present normal inspection and symmetric chest wall rise; Absent tenderness Respiratory Respiratory exam: Present normal lung sounds bilaterally; Absent respiratory distress Cardiovascular Cardiovascular exam: Present regular rate and normal rhythm Abdominal Exam Abdominal exam: Present soft; Absent distention, tenderness or guarding Extremities Exam Extremities exam: Present normal inspection, full ROM, normal capillary refill and other (Equal pulses in the bilateral lower extremities); Absent edema, joint swelling, calf tenderness or cyanosis Back Exam Back exam: Present normal inspection; Absent tenderness Neurological Exam Neurological exam: Present alert and oriented X3; Absent motor sensory deficit Psychiatric Psychiatric exam: Present normal affect and normal mood Skin Skin exam: Present warm, dry and normal color Lymphatic Lymphatic Findings: no adenopathy Medical Decision Making Medical Records Medical records reviewed: Yes I reviewed the patient's medical records. Screening: Per USPSTF and CDC recommendations, given the prevalence of disease in our region, it is our hospital?s policy to screen for HIV and viral Hepatitis for all patients aged 18 and over and those with ongoing risk factors. Javier Inquiry Pt receiving controlled substance: No Javier was queried for this patient: No Vital Signs: 10/15/24 22:35 10/16/24 01:22 Temperature 98.5 F 98.3 F Temperature Source Oral Oral Pulse Rate 69 Pulse Rate [Right Radial] 91 H Respiratory Rate 18 15 Blood Pressure 135/69 Blood Pressure [Right Arm] 109/59 L Blood Pressure Mean [Right Arm] 75 Blood Pressure Source Automatic Cuff Blood Pressure Source [Right Arm] Automatic Cuff Blood Pressure Position Sitting Blood Pressure Position [Right Arm] Sitting 02 Sat by Pulse Oximetry 98 Oxygen Delivery Method Room Air Room Air Lab Data Lab results reviewed: Yes I reviewed the patient's lab results. Lab Results 10/15/24 00:05: WBC 8.2, RBC 4.85, Hgb 13.4, Hct 40.2, MCV 82.9, MCH 27.6, MCHC 33.3, RDW 14.5, Plt Count 203, MPV 9.6, Neut % (Auto) 57.2, Lymph % (Auto) 35.3, [place] % (Auto) 5.6, Eos % (Auto) 1.3, Baso % (Auto) 0.4, Neut # (Auto) 4.7, Lymph # (Auto) 2.9, [place] # (Auto) 0.5, Eos # (Auto) 0.1, Baso # (Auto) 0.0, Sodium 137, Potassium 3.6, Chloride 108 H, Carbon Dioxide 25, Anion Gap 7.6, BUN 14, Creatinine 0.70, Estimated Creat Clear 186, Estimated GFR 95, Est GFR ( Amer) 115, Glucose 97, Calcium 9.3, Phosphorus 3.8, Magnesium 1.8, Total Bilirubin 0.6, AST 28, ALT 20, Alkaline Phosphatase 63, Total Creatine Kinase 31, Total Protein 6.8, Albumin 4.2, Globulin 2.6, Albumin/Globulin Ratio 1.6 10/15/24 00:05 10/15/24 00:05 Orders (Tests/Meds): ED MEDICATIONS Discontinued Medications Generic Name Dose Route Start Last Admin Trade Name Freq PRN Reason Stop Dose Admin Acetaminophen 1,000 mg 10/15/24 23:58 10/16/24 00:20 Acetaminophen 500mg Tab PO 10/15/24 23:59 1,000 mg ONCE ONE Administration Methocarbamol 1,000 mg 10/15/24 23:58 10/16/24 00:19 Methocarbamol 500mg Tablet PO 10/15/24 23:59 1,000 mg ONCE ONE Administration ORDERS Category Date Time Status CBC w/Auto Diff [Complete Blood Count Auto Diff] Stat Lab 10/15/24 00:05 Completed CK [Creatine Kinase] Stat Lab 10/15/24 00:05 Completed CMP [Comprehensive Metabolic Panel] Stat Lab 10/15/24 00:05 Completed Magnesium Stat Lab 10/15/24 00:05 Completed Phosphorous Stat Lab 10/15/24 00:05 Completed Medical Decision Narrative: 34-year-old female with history of prior DVTs and left iliac vein stent presents for worsening of her chronic left leg cramping.. History was obtained via interactive discussion with patient. On arrival, patient is [afebrile, hemodynamically stable, satting appropriately, alert, oriented x4, GCS 15], moving all extremities spontaneously. Full physical exam performed and significant for no swelling, erythema, cyanosis, patient has normal capillary refill and palpable pulses in the lower extremities Differential includes but is not limited to exacerbation of patient's chronic symptoms, new DVT, peripheral arterial/venous insufficiency. Patient was given methocarbamol, Tylenol for symptomatic management and correction of underlying abnormalities. Workup initiated including basic labs. Considered obtaining/performing ultrasound, but given patient has no physical exam findings consistent with DVT or arterial insufficiency I do not think that is indicated at this time. On re-evaluation, patient reports some symptomatic improvement. Laboratory workup independently interpreted by me and significant for normal renal function, no significant electrolyte derangement. Given patient history, exam and workup, patient's presentation most likely represents exacerbation of patient's chronic symptoms. No evidence of emergent pathology at this time. Patient was discharged in stable condition peer return precautions given.. Procedures Risk/Benefits of Procedure(s) Were Explained: Yes Critical Care Critical Care Time Critical Care Time: No
[2024-10-16 00:16] LABS: Hematocrit 40.2 % (37.0-47.0); Hemoglobin 13.4 g/dL (12.2-16.2); Immature Granulocytes % 0.2 %; Mean Corpuscular HGB Conc 33.3 g/dL (31.8-35.4); Mean Corpuscular Hemoglobin 27.6 pg (27.0-31.2); Mean Corpuscular Volume 82.9 fl (81-99); Nucleated Red Blood Cells % 0 %; Platelet Count 203 K/mm3 (142-424); Red Blood Count 4.85 M/mm3 (4.20-5.40); Red Cell Distribution Width-SD 43.7 fL; White Blood Count 8.2 K/mm3 (4.8-10.8)
[2024-10-16] MEDS: METHOCARBAMOL 500MG TABLET 1000 MG PO (00:19)
[2024-10-16 00:20] LABS: Albumin Level 4.2 g/dl (3.5-5.0); Chloride 108 mmol/L (98-107)
[2024-10-16] MEDS: ACETAMINOPHEN 500MG TAB 1000 MG PO (00:20)
[2024-10-16 00:21] LABS: Potassium 3.6 mmoL/L (3.5-5.1); Sodium 137 mmol/L (136-145)
[2024-10-16 00:23] LABS: Alanine Aminotransferase 20 U/L (12-78); Aspartate Amino Transferase 28 U/L (14-36); Blood Urea Nitrogen 14 mg/dl (7-17); Creatinine Clearance Estimated 186 mL/min (50-200); Creatinine,Serum 0.70 mg/dl (0.52-1.04); Estimated Glomerular Filt Rate 95 ml/min (>60); GFR (African American) 115 ML/MIN (>60)
[2024-10-16 00:24] LABS: Albumin/Globulin Ratio 1.6 (1.1-1.8); Alkaline Phosphatase 63 U/L (38-126); Anion Gap 7.6 mEq/L (5-15); Bilirubin,Total 0.6 mg/dl (0.2-1.3); Calcium 9.3 mg/dl (8.4-10.2); Carbon Dioxide 25 mmol/L (22.0-30.0); Creatine Kinase 31 U/L (30-135); Globulin 2.6 g/dL (1.3-3.2); Glucose 97 mg/dl (74-100); Magnesium 1.8 mg/dl (1.6-2.3); Total Protein,Serum 6.8 g/dl (6.3-8.2)
[2024-10-16 01:21] LABS: Phosphorous 3.8 mg/dl (2.5-4.5)
[2024-10-16 01:22] VITALS: BP 135/69; PULSE 69; RESP 15; TEMP 36.8; O2SAT 100
== END 2024-10-16 01:27 | disposition home or self-care (01) ==
PROVIDERS: Emergency Provider Emergency Medicine; PCP Nurse Practitioner Family
DX: M79.605 Pain in left leg (principal); R20.2 Paresthesia of skin; F17.200 Nicotine dependence, unspecified, uncomplicated
CPT/HCPCS: 80053; 82550; 83735; 84100; 85025; 99282; 99284

== ENCOUNTER 2025-01-18 08:47 | Outpatient (CLI) | payer MEDICAID, SELFPAY ==
[2025-01-18 17:23] LABS: Hematocrit 45.8 % (37.0-47.0); Hemoglobin 14.9 g/dL (12.2-16.2); Immature Granulocytes % 0.2 %; Mean Corpuscular HGB Conc 32.5 g/dL (31.8-35.4); Mean Corpuscular Hemoglobin 27.3 pg (27.0-31.2); Mean Corpuscular Volume 84.0 fl (81-99); Nucleated Red Blood Cells % 0 %; Platelet Count 201 K/mm3 (142-424); Red Blood Count 5.45 M/mm3 (4.20-5.40); Red Cell Distribution Width-SD 43.3 fL; White Blood Count 5.5 K/mm3 (4.8-10.8)
[2025-01-18 17:41] LABS: Alanine Aminotransferase 15 U/L (12-78); Albumin Level 4.5 g/dl (3.5-5.0); Albumin/Globulin Ratio 1.6 (1.1-1.8); Alkaline Phosphatase 66 U/L (38-126); Anion Gap 10.8 mEq/L (5-15); Aspartate Amino Transferase 24 U/L (14-36); Bilirubin,Total 1.0 mg/dl (0.2-1.3); Blood Urea Nitrogen 17 mg/dl (7-17); Calcium 9.4 mg/dl (8.4-10.2); Carbon Dioxide 21 mmol/L (22.0-30.0); Chloride 106 mmol/L (98-107); Cholesterol 193 mg/dl (140-200); Creatinine,Serum 0.70 mg/dl (0.52-1.04); Estimated Glomerular Filt Rate 95 ml/min (>60); GFR (African American) 115 ML/MIN (>60); Globulin 2.8 g/dL (1.3-3.2); Glucose 84 mg/dl (74-100); HDL Cholesterol 43 mg/dl (40-60); Iron 116 ug/dL (37-170); Potassium 3.8 mmoL/L (3.5-5.1); Sodium 134 mmol/L (136-145); Total Protein,Serum 7.3 g/dl (6.3-8.2); Triglycerides 97 mg/dl (30-150)
[2025-01-18 17:53] LABS: Total Iron Binding Capacity 303 ug/dL (265-497)
[2025-01-18 18:12] LABS: Thyroid Stimulating Hormone 2.19 uIU/mL (0.465-4.68)
[2025-01-18 18:16] LABS: Ferritin 71.5 ng/ml (6.24-137)
== END 2025-01-18 23:59 ==
LOC: LAB.DROPOF 01-19 09:28
PROVIDERS: PCP Nurse Practitioner Family; Visit Provider Family Medicine
DX: D64.9 Anemia, unspecified (principal)
CPT/HCPCS: 80053; 80061; 82728; 83540; 83550; 84443; 85025